=== PATIENT | female | born 1965 | race Caucasian/White ===

== ENCOUNTER 2018-04-23 21:28 | Emergency (ER) | payer MEDICARE ==
[2018-04-23 21:50] VITALS: BP 115/74
--- NOTE | 2018-04-23 22:22 | UC ---
Ear Complaint HPI - HPI Summary HPI Summary: 53 year old female presents with 1 week history of progressively worsening right ear pain. States began after she had been in a magnesium salt bath and may have gotten some water into the ear. Denies fever, chills, ear drainage, tinnitus, hearing loss, dizziness, vertigo, nasal congestion or drainage, sore throat, chest pain, shortness of breath, or cough. - History of Current Complaint Chief Complaint: UCEar Stated Complaint: EAR ACHE Time Seen by Provider: 04/23/18 22:00 Hx Obtained From: Patient Onset/Duration: Gradual Onset, Lasting Weeks - 1 Severity Initially: Mild Severity Currently: Moderate Pain Intensity: 8 Aggravating Factors: Nothing Alleviating Factors: Nothing Associated Signs/Symptoms: Negative: Discharge, Hearing Loss, URI Symptoms - Allergies/Home Medications Allergies/Adverse Reactions: Allergies Allergy/AdvReac Type Severity Reaction Status Date / Time Sulfa (Sulfonamide Allergy Severe Anaphylatic Verified 04/23/18 21:53 Antibiotics) Shock amoxicillin Allergy Intermediate Diarrhea Verified 04/23/18 21:53 erythromycin base Allergy Intermediate GI Upset Verified 04/23/18 21:53 fluoxetine Allergy Intermediate GI Upset Verified 04/23/18 21:53 progesterone Allergy Intermediate panic Verified 04/23/18 21:53 clavulanic acid Allergy Diarrhea Verified 04/23/18 21:53 STEROIDS AdvReac Severe "PUSH ME Uncoded 04/23/18 21:53 OVER THE EDGE" PMH/Surg Hx/FS Hx/Imm Hx - Additional Past Medical History Additional PMH: Fibromyalgia, environmental allergies Psychological History: Anxiety, Depression - Surgical History Surgical History: Yes Surgery Procedure, Year, and Place: 2004 hysterectomy- TOTAL HYSTERECTOMY, tonsillectomy & adenoidectomy, ear infections -tubes,mole removed left breast - Family History Known Family History: Positive: Hypertension, Diabetes, Other - anxiety, depression, Afib, aneurysm - Social History Occupation: Unemployed Lives: With Family Alcohol Use: None Substance Use Type: None Smoking Status (MU): Never Smoked Tobacco Review of Systems Constitutional: Negative Skin: Negative Eyes: Negative ENT: Ear Ache Respiratory: Negative Cardiovascular: Negative Is Patient Immunocompromised?: No All Other Systems Reviewed And Are Negative: Yes Physical Exam Triage Information Reviewed: Yes Appearance: Well-Appearing, No Pain Distress, Well-Nourished Vital Signs: Initial Vital Signs Temp 99.4 F 04/23/18 21:44 Pulse 82 04/23/18 21:44 Resp 20 04/23/18 21:44 BP 115/74 04/23/18 21:44 Pulse Ox 99 04/23/18 21:44 Vital Signs Reviewed: Yes Eyes: Positive: Conjunctiva Clear ENT: Positive: Pharynx normal, TMs normal, Uvula midline, Other - right external auditory canal eythematous with mild edema. No lesions or drainage noted.. Negative: Nasal congestion, Nasal drainage Neck: Positive: Supple, Nontender, No Lymphadenopathy Respiratory: Positive: Lungs clear, Normal breath sounds, No respiratory distress Cardiovascular: Positive: RRR, No Murmur Neurological: Positive: Alert Skin Exam: Normal Ear Complaint Course/Dx - Course Course Of Treatment: 53 year old female with 1 week of right ear pain after soaking in magnesium salt bath. Exam unremarkable except for some erythema and edema of the right exteral auditory canal consistent with a mild otits externa. Will prescribe 7 day course of Ciprodex and have her follow up with her PCP as already scheduled for recheck of ear. Patient verbalizes understanding and agrees with POC. - Differential Dx/Diagnosis Provider Diagnoses: right otitis externa Discharge - Sign-Out/Discharge Documenting (check all that apply): Patient Departure All imaging exams completed and their final reports reviewed: No Studies - Discharge Plan Condition: Stable Disposition: HOME Prescriptions: Ciproflox/Dexameth OTIC.SUSP* [Ciprodex OTIC.SUSP*] 4 drop .SEE ORDER BID 5 Days #1 btl Patient Education Materials: Otitis Externa (ED) Referrals: Edith Saldivar MD [Primary Care Provider] - () Additional Instructions: Your exam revealed a mild infection of the right ear canal. This is called swimmers ear. Start using Ciprodex otic 4 drops into the affected ear twice daily for 7 days. Take acetaminophen (Tylenol) according to directions as needed for pain. Do not place anything into the ear and avoid getting water into the ear. Follow-up with your primary care provider as scheduled on April 28, 2018 to have the ear rechecked. Seek immediate medical attention if you develop a fever greater than 100.5 F, have any blood or drainage from the ear, develop any dizziness or vertigo, lose hearing in the ear, or have any worsening of symptoms. - Billing Disposition and Condition Condition: STABLE Disposition: Home - Attestation Statements Provider Attestation: Per institutional requirements, I have reviewed the chart, however, I was not consulted specifically or made aware of this patient by the midlevel provider. I did not personally evaluate, interact with , or disposition this patient.
== END 2018-04-23 22:32 | disposition home or self-care (01) ==
LOC: UCEAST 21:28
DX: H60.91 Unspecified otitis externa, right ear (principal); Z88.0 Allergy status to penicillin; Z88.1 Allergy status to other antibiotic agents; Z88.8 Allergy status to other drugs, medicaments and biological substances
CPT/HCPCS: 99212; G0463

== ENCOUNTER 2018-05-25 17:58 | Emergency (ER) | payer MEDICARE ==
--- OUTSIDE RECORDS SUMMARY | 2018-05-25 18:04 | XMS REPORT ---
:1965 External Reference #:[id number] Author Organization [facility] Address [address] [place] [address] [place] [address] Phone [phone] Care Team Providers Name Role Phone Edith Saldivar MD Primary Care Physician Unavailable Payers Type Date Identification Numbers Payment Provider Subscriber Commercial Policy Number: [id number] [employer] pr Zarina Oneill PayID: [id number] [address] [address] Attn: [place] [address] Medigap Part B Expires: 2016 Policy Number: [id number] Medicare Zarinaluke Matthewsble PayID: [id number] [address] [place] [address] Medigap Part B Expires: 2012 Policy Number: [id number] Medicaid Zarina Nino Group Name: 1 1 [address] PayID: [id number] [place] [address] Commercial Effective: Policy Number: [employer] Zarinaluke Matthewsble 2012 [id number] Medicaid Expires: 2016 Group Name: [id number] [address] [address] PayID: [id number] [place] [address] Medigap Part B Effective: 2016 Policy Number: [id number] Medicaid Zarina Nino Expires: 2016 Group Name: 1 1 [address] PayID: [id number] [place] [address] Problems Date Description Provider Status Onset: 02/11/2012 Chronic pain syndrome Lupe Rodrigez M.D. Active Onset: 02/11/2012 Generalized anxiety disorder Lupe Rodrigez M.D. Active Onset: 05/07/2012 Impaired fasting glycaemia Lupe Rodrigez M.D. Active Onset: 08/30/2012 Rosacea Lupe Rodrigez M.D. Active Onset: 05/11/2013 Myalgia & Myositis Unspec Lupe Rodrigez M.D. Active Family History Date Family Member(s) Problem(s) Comments General Hypertension General Diabetes General Alzheimer's Disease Onset: (age 85 Years) Father Alzheimer's Disease lives at [facility] Mother Diabetes living at age 79 Mother Hypertension Mother Colitis First Brother Hypertension Social History Type Date Description Comments Lives With Mother has been living with her for last 20 plus years ETOH Use Denies alcohol use Smoking Patient has never smoked Recreational Drug Use Denies Drug Use Exercise Type/Frequency Exercises sporadically General Hx Text Engaged to be for several years, states is good relationship 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 b/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 and anxiety no formal exercise sexually active with fiance Allergies, Adverse Reactions, Alerts Date Description Reaction Status Severity Comments 02/03/2011 Bactrim active 02/03/2011 Erythromycin active 02/03/2011 Paxil active 02/03/2011 Prozac active 02/03/2011 Progesterone active 02/03/2011 Prednisone active 08/07/2016 Diflucan Urticaria active Moderate to Severe 11/21/2017 Noritate burning blistering rash active 10/19/2013 Augmentin severe diarrhea inactive Medications Medication Date Status Form Strength Qnty SIG Indications Ordering Provider Doxycycline 05/24 Hx Capsules 100mg 20cap one tablet J01.90 Gonzalo Hyclate /2017 s twice daily Nichole, [employer]DUCTOR/ENGINE[employer] - for 10 06/01 days. Ofloxacin 05/13 Active Solution 0.3% 5ml 10 drops Gonzalo (Otic) /2017 once daily Nichole [employer]DUCTOR/ENGINEER into affected ear for 7 days. Metrogel 12/11 Active Gel 1% 60uni apply twice L71.8 Gonzalo ts daily as Nichole [employer]DUCTOR/ENGINEER directed (please give in tube , not pump) Valacyclovir 10/12 Active Tablets 1gm 30tab 1 tablet Gonzalo HCL /2017 s once daily LEATHA Varela KP Vitamin D3 08/11 Active Capsules 2000Unit 30cap one tablet Gonzalo /2017 s daily Nichole [employer]DU[employer]/ENGINEER Fluticasone 10/08 Active Suspension 50mcg/Act 16uni 1 spray H93.93 Gonzalo Propionate /2015 ts each Nichole, CONDUCTOR/ENGINEER nostril daily as needed Zyrtec Allergy 02/20 Active Capsules 10mg 180ca 1 by mouth ps twice a day Nichole, CONDUCTOR/ENGINEER Xanax Active Tablets 0.25mg 20tab one by Unknown / s mouth up to four times daily as needed for anxiety Menostar Active Patches 14mcg/24H q6days Weekly R Vistaril Active Capsules 25mg 1-2 times daily as needed Advil Active Tablets 200mg as needed Magnesium Oxide Active Tablets 300mg 2 x per day by mouth every day Calcium Active Tablets 500-125mg -Unit Vitamin C Active Chewtabs 500mg 1 tab by mouth twice a day take with iron Meclizine HCL Active Tablets 12.5mg 90tab 1 by mouth Gonzalo s three times Nichole, CONDUCTOR/ENGINEER a day as needed Metronidazole 12/08 Hx Gel 0.75% 45gm apply twice L71.8 Gonzalo daily as Nichole, CONDUCTOR/ENGINEER - directed 12/31 Doxycycline 11/27 Hx Capsules 100mg 8caps one tablet J06.9 Gonzalo Hyclate twice daily Nichole, CONDUCTOR/ENGINEER - for 4 more 12/01 days. Metrogel 11/23 Hx Gel 1% 60uni apply twice L71.8 ts daily as Nichole, CONDUCTOR/ENGINEER - directed 12/08 ( give in tube , not pump) Noritate 10/30 Hx Cream 1% 60gm Apply twice L71.8 Gonzalo daily Nichole, CONDUCTOR/ENGINEER - 11/21 Doxycycline 07/17 Hx Capsules 100mg 20cap one tablet J06.9 Gonzalo Hyclate s twice daily Nichole, CONDUCTOR/ENGINEER - for 10 07/26 days. Doxycycline 05/28 Hx Capsules 100mg 20cap one tablet J01.90 Gonzalo Hyclate s twice daily Nichole, CONDUCTOR/ENGINEER - for 10 06/07 days. /2016 Vitamin D 03/03 Hx Capsules 1000Unit 30cap 1 by mouth Gonzalo (Cholecalcifero /2016 s once a day Nichole, CONDUCTOR/ENGINEER l) - 08/11 Vitamin D High 12/04 Hx Capsules 2000mg 60cap 1 by mouth Gonzalo Potency s every day Inchole, CONDUCTOR/ENGINEER - 03/03 Vitamin B-12 ER 12/04 Hx Tablets ER 500mcg 30tab 1 by mouth Gonzalo /2016 s every day Nichole, CONDUCTOR/ENGINEER - 05/28 Metoclopramide 12/04 Hx Tablets 5mg 14tab one tablet R10.9 Gonzalo HCL /2016 s every 8 Nichole, CONDUCTOR/ENGINEER - hours as 05/28 needed. Doxycycline 10/16 Hx Capsules 100mg 20cap one tablet J01.90 Gonzalo Hyclate /2016 s twice daily Nichole, CONDUCTOR/ENGINEER - for 10 10/24 days. Vitamin D2 08/06 Hx Tablets 2000Unit 90tab 1 by mouth Gonzalo /2016 s every day Nichole, CONDUCTOR/ENGINEER - 11/20 Meloxicam 04/24 Hx Tablets 7.5mg 30tab take one s tab twice Edgardo, - daily as M.D. 08/12 needed for pain, avoid other nsaids Ergocalciferol 04/01 Hx Capsules [id number] 12cap 1 tab by Gonzalo s mouth every Nichole, CONDUCTOR/ENGINEER - week 08/06 Metronidazole 10/17 Hx Gel 0.75% 45gm apply 1 L71.8 Edith /2016 application Cotton, - topically M.D. 10/17 to affected area twice daily Metrogel 10/17 Hx Gel 1% 60uni apply twice L71.8 ts daily as Nichole, CONDUCTOR/ENGINEER - directed 10/30 (please give in tube , not pump) Nasacort 09/26 Hx Aerosol 55mcg/Act 10.80 use 2 J06.9 Gonzalo Allergy 24HR 0ml sprays each Nichole, CONDUCTOR/ENGINEER - nostril 09/27 twice daily. Nasonex Hx Suspension 50mcg/Act 17gm two sprays J06.9 Gonzalo each Nichole, CONDUCTOR/ENGINEER - nostril 09/26 once daily 2016 for 2 weeks. Amoxicillin 05/14 Hx Tablets 500mg 14tab 1 tab by J06.9 s mouth twice Mcpherson, CONDUCTOR/ENGINEER - a day times 7 Valacyclovir 03/21 Hx Tablets 500mg 18tab 1 by mouth Gonzalo HCL s twice daily Nichole [employer]DUCTOR/ENGINEER - for 3 days 10/12 as needed Zovirax 02/06 Hx Cream 5% 5gm Apply thin film 5 Cotton, - times daily M.D. 05/28 as needed for rash Valacyclovir 12/25 Hx Tablets 1gm 21tab 1 by mouth Edith s three times Cotton, - a day for 7 M.D. Buspirone HCL 04/13 Hx Tablets 15mg 60tab take one s tablet by Cotton, - mouth twice M.D. 04/13 a Vistaril 04/13 Hx Capsules 25mg 30cap 1 to 2 tabs s by mouth at Cotton, - bedtime as M.D. 02/20 Gabapentin 04/13 Hx Capsules 100mg 60cap take 1 PO 719.45 s twice daily Cotton, - as needed M.D. 08/21 for nerve pain Lidoderm 02/21 Hx Patches 5% 90uni 1-2 patches ts daily on Cotton, - for 12 M.D. 08/11 hours and then off for 12 hours as needed Metrogel 11/29 Hx Gel 1% 55gm apply 1 695.3 application Cotton, - topically M.D. 10/17 to area twice daily Valacyclovir 10/31 Hx Tablets 500mg 30tab 1 by mouth 054.79 Edith HCL s daily Cotton, - M.D. 08/28 Valacyclovir 10/30 Hx Tablets 1gm 21tab 1 po tid 054.79 Patti HCL s for 7 days Benigno, - M.D. 10/31 Aleve 10/20 Hx Capsules 220mg 60cap 1 by mouth s twice a day Varn, N.P. - as needed 10/04 Lyrica 10/07 Hx Capsules 25mg 60cap 1 po qday s Varn, N.P. - 10/20 Amoxicillin/Cla 10/07 Hx Tablets 875-125mg 20tab one tablet 461.9 Amelia s by mouth Varn, N.P. Potassium - twice daily 10/17 for 10 days Valacyclovir 07/15 Hx Tablets 1gm 21tab 1 po tid 054.79 Lupe HCL s for 7 days Manas Rodrigez M.DJimmy 10/07 Fluticasone 05/11 Hx Suspension 50mcg/Act 16gm 1 spray V41.3 Lupe Propionate each Manas Rodrigez nostril M.D. 04/13 daily needed Vitamin D-3 11/08 Hx Tablets 400Unit 90tab 1 po qd s Manas Rodrigez.DJimmy 10/07 Cod Liver Oil 11/08 Hx Capsules Manas Rodrigez.DJimmy 04/13 Metronidazole 10/06 Hx Gel 1% 45gm apply twice 695.3 daily Manas Rodrigez M.DJimmy 11/29 Cefuroxime 10/04 Hx Tablets 250mg 20tab 1 tablet by Lupe Axetil s mouth twice Rain, - daily for M.D. 11/08 Metronidazole 09/06 Hx Gel 0.75% 45gm Apply 1 695.3 application Rain, - topically M.D. 11/08 to area 2 times per day Metronidazole 09/03 Hx Gel 1% 45gm apply twice 695.3 daily Manas Rodrigez M.DJimmy 09/06 Levaquin 03/05 Hx Tablets 500mg 10tab 1 po daily 680.9 Amelia /2012 s for 10 days Varn, N.P. - 03/05 Augmentin 03/05 Hx Tablets 875-125mg 20tab one by Amelia /2012 s mouth every Varn, N.P. - 12 hours 03/15 for days Doxycycline 02/10 Hx Capsules 100mg 28cap one tablet 682.6 Lupe Hyclate s twice daily Rain, - until gone M.D. 03/10 Cataflam 02/03 Hx Judie Francis - 02/03 Gabapentin 02/03 Hx Capsules 100mg 30cap 1 qhs tati Francis M.D. - 02/10 Meloxicam 02/03 Hx Tablets 7.5mg 30tab 1 po qd Eder tati Francis M.D. - 02/10 Nortriptyline Hx Capsules 10mg 60cap take 1 Unknown HCL /0000 s capsule - orally 08/30 twice a day Climara / Hx Patches 0.0375mg/ 1 Unknown /0000 Weekly 24HR transdermal - ly qweek 03/24 Metrogel Hx Gel 1% 60gm apply twice 695.3 Lupe /0000 daily Manas Rodrigez M.D. 09/03 Zyrtec Allergy Hx Capsules 10mg 30cap 1 po qd prn Lupe /0000 s Manas Rodrigez M.D. 08/28 Benadryl Hx Capsules 25mg 60cap 2- 4 tabs Unknown Allergy /0000 s for - allergies 02/20 Valacyclovir /00 Hx Tablets 1gm 21tab 1 po tid Unknown HCL /0000 s for 7 days - 08/30 Nasonex Hx Suspension 50mcg/Act 1unit 2 sprays to Unknown /0000 s each - nostril 08/30 twice daily /2012 Xopenex HFA Hx Aerosol 45mcg/Act 1unit 2 puffs qid Unknown /0000 s prn - 11/08 Valacyclovir 00/00 Hx Tablets 1gm 21tab 1 po tid 054.79 Lupe HCL /0000 s for 7 days Manas Rodrigez M.D. 04/08 Nortriptyline 00/ Hx Capsules 10mg 30cap 1 po every Unknown HCL /0000 s day - 11/09 Estradiol 00/00 Hx Tablets 0.25mg 30tab 1 po qd Unknown /0000 s - 05/11 Nortriptyline /00 Hx Capsules 10mg 90cap 1 tab by Unknown HCL /0000 s mouth every - night as 08/28 Tramadol HCL 00/00 Hx Tablets 50mg 1-2 tablets Unknown /0000 every 6 - hours as 11/01 Metaxalone 00 Hx Tablets 800mg as needed Unknown /0000 - 12/04 Advil Declan Hx Chewtabs 100mg Unknown Strength /0000 - 10/04 Metaxalone Hx Tablets 400mg 1/2 tablet Unknown /0000 daily as - needed 12/04 Tami Moon Hx Pellet 4 tabs Unknown /0000 sublingual - bid 05/28 Vitamin B 6 Hx Tablets 25mg 1/2 tab qd Unknown /0000 - 07/17 Doxycycline Hx Capsules 100mg Jesica Damon /0000 MD Jonah - 08/11 Immunizations CPT Code Status Date Vaccine Lot # [id number] Given 03/21/2016 Flu Vaccine NOS [id number] Given 08/28/2014 Tdap - Tetanus/Diptheria/Acellular Pertussis 9924l Vital Signs Date Vital Result Comment 05/24/2018 Height 67.5 inches 5'7.50" Weight 162.00 lb Heart Rate 69 /min BP Systolic 113 mmHg BP Diastolic 71 mmHg Body Temperature 98.1 F O2 % BldC Oximetry 99 % BMI (Body Mass Index) 25.0 kg/m2 05/07/2018 Height 67.5 inches 5'7.50" Weight 167.00 lb Heart Rate 75 /min BP Systolic 117 mmHg BP Diastolic 73 mmHg Body Temperature 98.0 F O2 % BldC Oximetry 98 % BMI (Body Mass Index) 25.8 kg/m2 12/31/2017 Weight 169.50 lb Heart Rate 86 /min BP Systolic 100 mmHg BP Diastolic 62 mmHg Body Temperature 97.5 F O2 % BldC Oximetry 100 % 11/25/2017 Weight 163.25 lb Heart Rate 81 /min BP Systolic 116 mmHg BP Diastolic 72 mmHg Body Temperature 98.1 F O2 % BldC Oximetry 97 % 10/28/2017 Weight 162.50 lb Heart Rate 82 /min BP Systolic 112 mmHg BP Diastolic 70 mmHg Body Temperature 98.7 F O2 % BldC Oximetry 98 % 07/17/2017 Weight 159.00 lb Heart Rate 83 /min BP Systolic 110 mmHg BP Diastolic 66 mmHg Body Temperature 97.7 F O2 % BldC Oximetry 98 % 05/28/2017 Weight 163.50 lb Heart Rate 84 /min BP Systolic Sitting 104 mmHg BP Diastolic Sitting 72 mmHg Body Temperature 99.1 F O2 % BldC Oximetry 98 % 03/16/2017 Heart Rate 72 /min BP Systolic 120 mmHg BP Diastolic 80 mmHg Respiratory Rate 16 /min Body Temperature 96.3 F 12/12/2016 Heart Rate 72 /min BP Systolic 102 mmHg BP Diastolic 64 mmHg Respiratory Rate 16 /min Body Temperature 97.9 F 12/05/2016 Height 67.25 inches 5'7.25" Weight 160.00 lb Heart Rate 72 /min BP Systolic 120 mmHg BP Diastolic 78 mmHg Respiratory Rate 16 /min Body Temperature 98.5 F BMI (Body Mass Index) 24.9 kg/m2 12/04/2016 Weight 161.50 lb Heart Rate 94 /min BP Systolic 120 mmHg BP Diastolic 66 mmHg Body Temperature 100.1 F O2 % BldC Oximetry 99 % 10/16/2016 Weight 161.00 lb with shoes 08/12/2016 Height 67.25 inches 5'7.25" Weight 160.00 lb Heart Rate 98 /min BP Systolic Sitting 120 mmHg BP Diastolic Sitting 76 mmHg Body Temperature 97.9 F Pain Level 10 BMI (Body Mass Index) 24.9 kg/m2 08/11/2016 Height 67.25 inches 5'7.25" Weight 162.00 lb Heart Rate 79 /min BP Systolic 110 mmHg BP Diastolic 72 mmHg Body Temperature 98.1 F O2 % BldC Oximetry 99 % BMI (Body Mass Index) 25.2 kg/m2 05/12/2016 Height 67.25 inches 5'7.25" Weight 170.25 lb Heart Rate 72 /min BP Systolic Sitting 100 mmHg BP Diastolic Sitting 70 mmHg Respiratory Rate 14 /min Body Temperature 97.6 F Pain Level 8 BMI (Body Mass Index) 26.5 kg/m2 04/24/2016 Height 67.25 inches 5'7.25" Weight 173.00 lb Heart Rate 80 /min BP Systolic Sitting 120 mmHg BP Diastolic Sitting 70 mmHg Respiratory Rate 14 /min Body Temperature 97.9 F Pain Level 10 BMI (Body Mass Index) 26.9 kg/m2 03/27/2016 Weight 178.00 lb with shoes Heart Rate 80 /min BP Systolic Sitting 104 mmHg BP Diastolic Sitting 80 mmHg Body Temperature 97.3 F O2 % BldC Oximetry 98 % 11/02/2015 Weight 175.75 lb Heart Rate 84 /min BP Systolic Sitting 108 mmHg BP Diastolic Sitting 69 mmHg Body Temperature 97.0 F O2 % BldC Oximetry 97 % 10/05/2015 Weight 175.00 lb Heart Rate 98 /min BP Systolic Sitting 118 mmHg BP Diastolic Sitting 74 mmHg Body Temperature 99.5 F O2 % BldC Oximetry 98 % 09/24/2015 Weight 176.00 lb Heart Rate 89 /min BP Systolic Sitting 115 mmHg BP Diastolic Sitting 77 mmHg Body Temperature 98.8 F Pain Level 10 O2 % BldC Oximetry 96 % 05/14/2015 Weight 176.00 lb Heart Rate 98 /min BP Systolic Sitting 120 mmHg BP Diastolic Sitting 77 mmHg Body Temperature 98.7 F 02/20/2015 Weight 171.00 lb Heart Rate 87 /min BP Systolic Sitting 118 mmHg BP Diastolic Sitting 76 mmHg Body Temperature 97.6 F 11/27/2014 Weight 172.00 lb Heart Rate 83 /min BP Systolic Sitting 115 mmHg BP Diastolic Sitting 78 mmHg 09/08/2014 Weight 176.00 lb Heart Rate 96 /min BP Systolic Sitting 130 mmHg BP Diastolic Sitting 80 mmHg Body Temperature 98.4 F 08/28/2014 Height 67.5 inches 5'7.50" Weight 179.00 lb Heart Rate 102 /min BP Systolic Sitting 116 mmHg BP Diastolic Sitting 68 mmHg Body Temperature 98.2 F BMI (Body Mass Index) 27.6 kg/m2 04/13/2014 Weight 174.50 lb Heart Rate 87 /min BP Systolic Sitting 110 mmHg BP Diastolic Sitting 70 mmHg Body Temperature 98.6 F O2 % BldC Oximetry 97 % 02/16/2014 Weight 172.00 lb Heart Rate 72 /min BP Systolic Sitting 118 mmHg BP Diastolic Sitting 62 mmHg Body Temperature 98.5 F 01/16/2014 Height 67.5 inches 5'7.50" Weight 173.00 lb Heart Rate 80 /min BP Systolic Sitting 122 mmHg BP Diastolic Sitting 80 mmHg Body Temperature 99.2 F BMI (Body Mass Index) 26.7 kg/m2 11/29/2013 Height 67.5 inches 5'7.50" Weight 174.00 lb Heart Rate 86 /min BP Systolic Sitting 98 mmHg BP Diastolic Sitting 64 mmHg Body Temperature 99.0 F BMI (Body Mass Index) 26.8 kg/m2 11/09/2013 Weight 175.50 lb Heart Rate 84 /min BP Systolic Sitting 122 mmHg BP Diastolic Sitting 86 mmHg Respiratory Rate 18 /min Body Temperature 98.4 F O2 % BldC Oximetry 98 % 10/20/2013 Weight 173.50 lb Heart Rate 76 /min BP Systolic 108 mmHg BP Diastolic 74 mmHg Respiratory Rate 16 /min Body Temperature 96.2 F 10/07/2013 Weight 172.50 lb Heart Rate 84 /min BP Systolic 120 mmHg BP Diastolic 78 mmHg Respiratory Rate 18 /min Body Temperature 96.5 F 07/06/2013 Weight 166.00 lb Heart Rate 88 /min BP Systolic Sitting 122 mmHg BP Diastolic Sitting 80 mmHg 05/11/2013 Height 67.25 inches 5'7.25" Weight 166.75 lb Heart Rate 100 /min BP Systolic 110 mmHg BP Diastolic 72 mmHg BMI (Body Mass Index) 25.9 kg/m2 04/08/2013 Weight 170.00 lb Heart Rate 82 /min BP Systolic Sitting 126 mmHg BP Diastolic Sitting 84 mmHg 02/23/2013 Weight 168.75 lb Heart Rate 80 /min BP Systolic Sitting 120 mmHg BP Diastolic Sitting 70 mmHg 11/17/2012 Weight 167.75 lb Heart Rate 68 /min BP Systolic Sitting 108 mmHg BP Diastolic Sitting 70 mmHg 11/08/2012 Height 67 inches 5'7" Weight 169.00 lb Heart Rate 82 /min BP Systolic Sitting 122 mmHg BP Diastolic Sitting 70 mmHg BMI (Body Mass Index) 26.5 kg/m2 10/04/2012 Height 67 inches 5'7" Weight 170.00 lb Heart Rate 80 /min BP Systolic Sitting 120 mmHg BP Diastolic Sitting 66 mmHg BMI (Body Mass Index) 26.6 kg/m2 08/30/2012 Height 67 inches 5'7" Weight 169.75 lb Heart Rate 92 /min BP Systolic Sitting 110 mmHg BP Diastolic Sitting 80 mmHg BMI (Body Mass Index) 26.6 kg/m2 05/07/2012 Height 67 inches 5'7" Weight 171.00 lb Heart Rate 80 /min BP Systolic Sitting 128 mmHg BP Diastolic Sitting 74 mmHg BMI (Body Mass Index) 26.8 kg/m2 03/24/2012 Height 67 inches 5'7" Weight 171.00 lb Heart Rate 78 /min BP Systolic Sitting 122 mmHg BP Diastolic Sitting 74 mmHg BMI (Body Mass Index) 26.8 kg/m2 03/10/2012 Height 67 inches 5'7" Weight 169.00 lb Heart Rate 80 /min BP Systolic Sitting 130 mmHg BP Diastolic Sitting 84 mmHg BMI (Body Mass Index) 26.5 kg/m2 03/05/2012 Height 67 inches 5'7" Weight 170.00 lb Heart Rate 80 /min BP Systolic Sitting 122 mmHg BP Diastolic Sitting 74 mmHg BMI (Body Mass Index) 26.6 kg/m2 02/11/2012 Height 67 inches 5'7" Weight 170.00 lb Heart Rate 78 /min BP Systolic Sitting 134 mmHg BP Diastolic Sitting 80 mmHg BMI (Body Mass Index) 26.6 kg/m2 04/10/2011 Height 67 inches 5'7" Weight 170.00 lb Heart Rate 78 /min BP Systolic 140 mmHg BP Diastolic 90 mmHg BMI (Body Mass Index) 26.6 kg/m2 02/03/2011 Height 67 inches 5'7" Weight 169.00 lb Heart Rate 80 /min BP Systolic 130 mmHg BP Diastolic 80 mmHg BMI (Body Mass Index) 26.5 kg/m2 Results Test Date Test Result H/L Range Note CBC Auto Diff 12/31/2017 White Blood Count 5.2 10^3/uL 3.5-10.8 Red Blood Count 4.22 10^6/uL 4.0-5.4 Hemoglobin 14.1 g/dL 12.0-16.0 Hematocrit 40 % 35-47 Mean Corpuscular Volume 95 fL 80-97 Mean Corpuscular Hemoglobin 33 pg High 27-31 Mean Corpuscular HGB Conc 35 g/dL 31-36 Red Cell Distribution Width 14 % 10.5-15 Platelet Count 170 10^3/uL 150-450 Mean Platelet Volume 8.2 um3 7.4-10.4 Abs Neutrophils 3.7 10^3/uL 1.5-7.7 Abs Lymphocytes 1.2 10^3/uL 1.0-4.8 Abs Monocytes 0.3 10^3/uL 0-0.8 Abs Eosinophils 0 10^3/uL 0-0.6 Abs Basophils 0 10^3/uL 0-0.2 Abs Nucleated RBC 0 10^3/uL Granulocyte % 70.7 % 38-83 Lymphocyte % 22.3 % Low 25-47 Monocyte % 6.0 % 0-7 Eosinophil % 0.5 % 0-6 Basophil % 0.5 % 0-2 Nucleated Red Blood Cells % 0.1 Comp Metabolic Panel 12/31/2017 Sodium 141 mmol/L 139-145 Potassium 3.9 mmol/L 3.5-5.0 Chloride 105 mmol/L 101-111 Co2 Carbon Dioxide 28 mmol/L 22-32 Anion Gap 8 mmol/L 2-11 Glucose 112 mg/dL High 70-100 Blood Urea Nitrogen 18 mg/dL 6-24 Creatinine 0.85 mg/dL 0.51-0.95 BUN/Creatinine Ratio 21.2 High 8-20 Calcium 9.1 mg/dL 8.6-10.3 Total Protein 6.6 g/dL 6.4-8.9 Albumin 4.2 g/dL 3.2-5.2 Globulin 2.4 g/dL 2-4 Albumin/Globulin Ratio 1.8 1-3 Total Bilirubin 0.40 mg/dL 0.2-1.0 Alkaline Phosphatase 57 U/L 34-104 Alt 20 U/L 7-52 Ast 19 U/L 13-39 Egfr Non- 70.5 >60 Egfr 90.7 >60 1 Laboratory test finding 12/31/2017 Vitamin B12 642 pg/mL 180-914 2 Vitamin D Total 25(Oh) 27.7 ng/mL 20-50 TSH (Thyroid Stim Horm) 1.76 mcIU/mL 0.34-5.60 Urine Culture And Sensitivities 12/05/2016 Urine Culture SEE RESULT BELOW 3 Laboratory test finding 12/05/2016 Amylase 40 U/L 29-103 Lipase 29 U/L 11.0-82.0 Laboratory test finding 12/05/2016 Surgical Pathology SEE RESULT BELOW 4 CBC Auto Diff 12/05/2016 White Blood Count 7.6 10^3/uL 3.5-10.8 Red Blood Count 4.41 10^6/uL 4.0-5.4 Hemoglobin 13.5 g/dL 12.0-16.0 Hematocrit 40 % 35-47 Mean Corpuscular Volume 91 fL 80-97 Mean Corpuscular Hemoglobin 31 pg 27-31 Mean Corpuscular HGB Conc 34 g/dL 31-36 Red Cell Distribution Width 12 % 10.5-15 Platelet Count 154 10^3/uL 150-450 Mean Platelet Volume 9 um3 7.4-10.4 Abs Neutrophils 5.8 10^3/uL 1.5-7.7 Abs Lymphocytes 1.3 10^3/uL 1.0-4.8 Abs Monocytes 0.5 10^3/uL 0-0.8 Abs Eosinophils 0 10^3/uL 0-0.6 Abs Basophils 0 10^3/uL 0-0.2 Abs Nucleated RBC 0 10^3/uL Granulocyte % 76.0 % 38-83 Lymphocyte % 16.5 % Low 25-47 Monocyte % 6.6 % 1-9 Eosinophil % 0.4 % 0-6 Basophil % 0.5 % 0-2 Nucleated Red Blood Cells % 0 Comp Metabolic Panel 12/05/2016 Sodium 140 mmol/L 133-145 Potassium 3.8 mmol/L 3.5-5.0 Chloride 104 mmol/L 101-111 Co2 Carbon Dioxide 29 mmol/L 22-32 Anion Gap 7 mmol/L 2-11 Glucose 100 mg/dL 70-100 Blood Urea Nitrogen 15 mg/dL 6-24 Creatinine 0.93 mg/dL 0.51-0.95 BUN/Creatinine Ratio 16.1 8-20 Calcium 8.6 mg/dL 8.6-10.3 Total Protein 6.2 g/dL Low 6.4-8.9 Albumin 3.7 g/dL 3.2-5.2 Globulin 2.5 g/dL 2-4 Albumin/Globulin Ratio 1.5 1-3 Total Bilirubin 0.90 mg/dL 0.2-1.0 Alkaline Phosphatase 63 U/L 34-104 Alt 13 U/L 7-52 Ast 14 U/L 13-39 Egfr Non- 63.8 >60 Egfr 82.1 >60 5 Ua Routine 12/04/2016 Ua Specific [place] 1.010 Ua PH 6 Ua Color yellow Ua Appera clear Ua WBC tr Ua Protein neg Ua Glucose neg Ua Ketones norm Ua Bilirubin norm Ua Urobilinogen norm Ua Nitrite neg Ua Occult Blood neg Ua Routine 08/11/2016 Ua Specific [place] 1.005 Ua PH 7.5 Ua Color yellow Ua Appera clear Ua WBC -- Ua Protein -- Ua Glucose -- Ua Ketones moderate Ua Bilirubin -- Ua Urobilinogen normal Ua Nitrite -- Ua Occult Blood -- Urine Culture And 08/11/2016 Urine Culture SEE RESULT BELOW 6 Sensitivities Laboratory test finding 07/25/2016 Vitamin D Total 28.0 ng/mL Low 30-50 7 25(Oh) Vitamin B12 415 pg/mL 180-914 8 Laboratory test finding 04/24/2016 Anti Nuclear Antibody 0.4 U 9 Anca AB Ser If 04/24/2016 C-Anca Negative Negative P-Anca Negative Negative 10 Laboratory test finding 04/24/2016 Angiotensin Converting 38 U/L 8 - 53 11 Enzyme Anti-Thyroid Antibodies 04/24/2016 Thyroperoxidase AB 0.25 IU/mL <9 Screen Thyroglobulin AB <1.8 IU/mL <4.0 12 Laboratory test finding 04/24/2016 Creatine Kinase(CK) 97 U/L 10-223 C Reactive Protein 5.96 mg/L High < 5.00 13 Cyclic Citrullinated Pep Igg <15.6 U 14 Rheumatoid Factor <15 IU/mL <15 15 Ferritin 107.7 ng/mL 11-307 T3 Total 0.85 ng/mL Low 0.87-1.78 Celiac Panel 04/24/2016 Tissue Transglutaminase IgA Ab <1.2 U/mL 16 Immunoglobulin A 227 mg/dL 61 - 356 Celiac Interpretation See Comment 17 Celiac Hla DQ1/DQ2 04/24/2016 Hla-Dqa1 SEE BELOW 18 Hla-DQB1 SEE BELOW 19 Celiac Gene Pairs Present? Yes Celiac Gene Interpretation See Comment 20 Hla B27 04/24/2016 Hla B27 Negative 21 Hla B27 Interp See Comment 22 Laboratory test finding 04/24/2016 Uric Acid 5.0 mg/dL 2.3-6.6 Laboratory test finding 03/29/2016 Vitamin D Total 25(Oh) 18.2 ng/mL Low 30-50 Vitamin B12 293 pg/mL 180-914 23 Erythrocyte Sed Rate 26 mm/Hr High 0-14 C Reactive Protein 6.09 mg/L High < 5.00 24 TSH (Thyroid Stim Horm) 1.93 mcIU/mL 0.34-5.60 CBC Auto Diff 10/06/2015 White Blood Count 3.9 10^3/uL 3.5-10.8 Red Blood Count 4.57 10^6/uL 4.0-5.4 Hemoglobin 14.0 g/dL 12.0-16.0 Hematocrit 41 % 35-47 Mean Corpuscular Volume 90 fL 80-97 Mean Corpuscular Hemoglobin 31 pg 27-31 Mean Corpuscular HGB Conc 34 g/dL 31-36 Red Cell Distribution Width 12 % 10.5-15 Platelet Count 146 10^3/uL Low 150-450 Mean Platelet Volume 7 um3 Low 7.4-10.4 Abs Neutrophils 2.8 10^3/uL 1.5-7.7 Abs Lymphocytes 0.8 10^3/uL Low 1.0-4.8 Abs Monocytes 0.4 10^3/uL 0-0.8 Abs Eosinophils 0 10^3/uL 0-0.6 Abs Basophils 0 10^3/uL 0-0.2 Abs Nucleated RBC 0 10^3/uL Granulocyte % 70.6 % 38-83 Lymphocyte % 19.7 % Low 25-47 Monocyte % 8.9 % 1-9 Eosinophil % 0.1 % 0-6 Basophil % 0.7 % 0-2 Nucleated Red Blood Cells % 0.1 Comp Metabolic Panel 10/06/2015 Sodium 135 mmol/L 133-145 Potassium 4.0 mmol/L 3.5-5.0 Chloride 101 mmol/L 101-111 Co2 Carbon Dioxide 29 mmol/L 22-32 Anion Gap 5 mmol/L 2-11 Glucose 92 mg/dL 70-100 Blood Urea Nitrogen 11 mg/dL 6-24 Creatinine 0.97 mg/dL High 0.51-0.95 BUN/Creatinine Ratio 11.3 8-20 Calcium 8.7 mg/dL 8.6-10.3 Total Protein 7.3 g/dL 6.4-8.9 Albumin 4.3 g/dL 3.2-5.2 Globulin 3.0 g/dL 2-4 Albumin/Globulin Ratio 1.4 1-3 Total Bilirubin 0.50 mg/dL 0.2-1.0 Alkaline Phosphatase 64 U/L 34-104 Alt 34 U/L 7-52 Ast 31 U/L 13-39 Egfr Non- 61.0 >60 Egfr 78.5 >60 25 Laboratory test finding 10/06/2015 C Reactive Protein 17.40 mg/L High < 5.00 26 Erythrocyte Sed Rate 32 mm/Hr High 0-14 Ua Routine 10/05/2015 Ua Specific [place] 1.005 Ua PH yellow Ua Color grady Ua Appera neg Ua WBC neg Ua Protein neg Ua Glucose neg Ua Ketones neg Ua Bilirubin neg Ua Urobilinogen neg Ua Nitrite neg Ua Occult Blood neg CBC Auto Diff 09/24/2015 White Blood Count 5.5 10^3/uL 3.5-10.8 Red Blood Count 4.72 10^6/uL 4.0-5.4 Hemoglobin 14.9 g/dL 12.0-16.0 Hematocrit 43 % 35-47 Mean Corpuscular Volume 90 fL 80-97 Mean Corpuscular Hemoglobin 32 pg High 27-31 Mean Corpuscular HGB Conc 35 g/dL 31-36 Red Cell Distribution Width 12 % 10.5-15 Platelet Count 154 10^3/uL 150-450 Mean Platelet Volume 8 um3 7.4-10.4 Abs Neutrophils 4.0 10^3/uL 1.5-7.7 Abs Lymphocytes 1.0 10^3/uL 1.0-4.8 Abs Monocytes 0.4 10^3/uL 0-0.8 Abs Eosinophils 0 10^3/uL 0-0.6 Abs Basophils 0 10^3/uL 0-0.2 Abs Nucleated RBC 0.05 10^3/uL Granulocyte % 72.3 % 38-83 Lymphocyte % 18.1 % Low 25-47 Monocyte % 8.2 % 1-9 Eosinophil % 0.9 % 0-6 Basophil % 0.5 % 0-2 Nucleated Red Blood Cells % 0.9 Laboratory test finding 09/24/2015 Creatine Kinase(CK) 61 U/L 10-223 Comp Metabolic Panel 09/24/2015 Sodium 140 mmol/L 133-145 Potassium 4.2 mmol/L 3.5-5.0 Chloride 101 mmol/L 101-111 Co2 Carbon Dioxide 32 mmol/L 22-32 Anion Gap 7 mmol/L 2-11 Glucose 66 mg/dL Low 70-100 Blood Urea Nitrogen 15 mg/dL 6-24 Creatinine 0.98 mg/dL High 0.51-0.95 BUN/Creatinine Ratio 15.3 8-20 Calcium 9.4 mg/dL 8.6-10.3 Total Protein 7.0 g/dL 6.4-8.9 Albumin 4.5 g/dL 3.2-5.2 Globulin 2.5 g/dL 2-4 Albumin/Globulin Ratio 1.8 1-3 Total Bilirubin 0.60 mg/dL 0.2-1.0 Alkaline Phosphatase 72 U/L 34-104 Alt 23 U/L 7-52 Ast 27 U/L 13-39 Egfr Non- 60.3 >60 Egfr 77.6 >60 27 Laboratory test finding 09/24/2015 C Reactive Protein 53.25 mg/L High < 5.00 28 Cyclic Citrullinated Pep Igg <15.6 U 29 Erythrocyte Sed Rate 24 mm/Hr High 0-14 Lyme Disease Serology Negative Negative 30 Rheumatoid Factor <15 IU/mL <15 31 Merissa (Antinuclear Antibodies) Negative Negative Lipid Profile (Trig/Chol/HDL) 02/20/2015 Triglycerides 378 mg/dL 32, 33 Cholesterol 206 mg/dL 32, 34 HDL Cholesterol 39.4 mg/dL 32, 35 LDL Cholesterol 91 mg/dL 32, 36 Lipid Profile (Trig/Chol/HDL) 11/23/2014 Triglycerides 394 mg/dL 37, 38 Cholesterol 204 mg/dL 37, 39 HDL Cholesterol 32.1 mg/dL 37, 40 LDL Cholesterol 93 mg/dL 37, 41 CBC No Diff 11/23/2014 White Blood Count 4.2 10^3/uL Low 4.8-10.8 Red Blood Count 4.64 10^6/uL 4.0-5.4 Hemoglobin 14.4 g/dL 12.0-16.0 Hematocrit 42 % 35-47 Mean Corpuscular Volume 91 fL 80-97 Mean Corpuscular Hemoglobin 31 pg 27-31 Mean Corpuscular HGB Conc 34 g/dL 31-36 Red Cell Distribution Width 13 % 10.5-15 Platelet Count 176 10^3/uL 150-450 Mean Platelet Volume 8 um3 7.4-10.4 Comp Metabolic Panel 11/23/2014 Sodium 138 mmol/L 133-145 Potassium 4.2 mmol/L 3.5-5.0 Chloride 104 mmol/L 101-111 Co2 Carbon Dioxide 30 mmol/L 22-32 Anion Gap 4 mmol/L 2-11 Glucose 95 mg/dL 70-100 Blood Urea Nitrogen 16 mg/dL 6-24 Creatinine 0.94 mg/dL 0.51-0.95 BUN/Creatinine Ratio 17.0 8-20 Calcium 9.0 mg/dL 8.6-10.3 Total Protein 6.6 g/dL 6.4-8.9 Albumin 4.3 g/dL 3.2-5.2 Globulin 2.3 g/dL 2-4 Albumin/Globulin Ratio 1.9 1-3 Total Bilirubin 0.60 mg/dL 0.2-1.0 Alkaline Phosphatase 62 U/L 34-104 Alt 18 U/L 7-52 Ast 18 U/L 13-39 Egfr Non- 63.6 >60 Egfr 81.7 >60 42 Laboratory test finding 11/23/2014 Erythrocyte Sed Rate 25 mm/Hr High 0- 14 Lipid Profile 08/29/2014 Triglycerides 530 mg/dL 37, 43 (Trig/Chol/HDL) Cholesterol 221 mg/dL 37, 44 HDL Cholesterol 34.6 mg/dL 37, 45 LDL Cholesterol (SEE NOTE) mg/dL 37, 46 Comp Metabolic Panel 08/29/2014 Sodium 138 mmol/L 133-145 37 Potassium 4.3 mmol/L 3.5-5.0 37 Chloride 102 mmol/L 101-111 37 Co2 Carbon Dioxide 29 mmol/L 22-32 37 Anion Gap 7 mmol/L 2-11 37 Glucose 97 mg/dL 70-100 37 Blood Urea Nitrogen 14 mg/dL 6-24 37 Creatinine 0.90 mg/dL 0.51-0.95 37 BUN/Creatinine Ratio 15.6 8-20 37 Calcium 9.5 mg/dL 8.6-10.3 37 Total Protein 6.8 g/dL 6.4-8.9 37 Albumin 4.3 g/dL 3.2-5.2 37 Globulin 2.5 g/dL 2-4 37 Albumin/Globulin Ratio 1.7 1-3 37 Total Bilirubin 0.70 mg/dL 0.2-1.0 37 Alkaline Phosphatase 73 U/L 34-104 37 Alt 16 U/L 7-52 37 Ast 18 U/L 13-39 37 Egfr Non- 66.8 >60 37 Egfr 85.9 >60 37, 47 Laboratory test finding 08/29/2014 Hemoglobin A1c 5.6 % Less than 6.0 37 , 48 TSH (Thyroid Stimulating Horm) 2.28 IU/mL 0.34-5.60 37, 49 LDL Cholesterol Direct 83 mg/dL 37, 50 Ua Routine 08/28/2014 Ua Specific [place] 1.005 Ua PH 7 Ua Color yellow Ua Appera clear Ua WBC neg Ua Protein neg Ua Glucose neg Ua Ketones neg Ua Bilirubin neg Ua Urobilinogen 0.2 Ua Nitrite neg Ua Occult Blood neg CBC Auto Diff 12/25/2013 White Blood Count 6.0 10^3/uL 4.8-10.8 Red Blood Count 4.21 10^6/uL 4.0-5.4 Hemoglobin 13.6 g/dL 12.0-16.0 Hematocrit 38 % 35-47 Mean Corpuscular Volume 91 fL 80-97 Mean Corpuscular Hemoglobin 32 pg High 27-31 Mean Corpuscular HGB Conc 36 g/dL 31-36 Red Cell Distribution Width 13 % 10.5-15 Platelet Count 146 10^3/uL Low 150-450 Mean Platelet Volume 8 um3 7.4-10.4 Abs Neutrophils 3.5 10^3/uL 1.5-7.7 Abs Lymphocytes 2.0 10^3/uL 1.0-4.8 Abs Monocytes 0.4 10^3/uL 0-0.8 Abs Eosinophils 0.1 10^3/uL 0-0.6 Abs Basophils 0.1 10^3/uL 0-0.2 Abs Nucleated RBC 0.01 10^3/uL Granulocyte % 58.4 % 38-83 Lymphocyte % 33.0 % 25-47 Monocyte % 6.7 % 1-9 Eosinophil % 1.0 % 0-6 Basophil % 0.9 % 0-2 Nucleated Red Blood Cells % 0.1 Inr/Protime 12/25/2013 Inr 0.94 0.85-1.06 Laboratory test 12/25/2013 D Dimer Quantitative < 200 ng/mL Less Than 230 51 finding Comp Metabolic Panel 12/25/2013 Sodium 138 mmol/L 133-145 Potassium 3.9 mmol/L 3.7-5.6 Chloride 103 mmol/L 101-111 Co2 Carbon Dioxide 30 mmol/L 22-32 Anion Gap 5 mmol/L 2-11 Glucose 89 mg/dL 70-100 Blood Urea Nitrogen 15 mg/dL 6-24 Creatinine 0.92 mg/dL 0.51-0.95 BUN/Creatinine Ratio 16.3 8-20 Calcium 9.3 mg/dL 8.6-10.3 Total Protein 7.1 g/dL 6.4-8.9 Albumin 4.2 g/dL 3.2-5.2 Globulin 2.9 g/dL 2-4 Albumin/Globulin Ratio 1.4 1-3 Total Bilirubin 0.40 mg/dL 0.2-1.0 Alkaline Phosphatase 66 U/L 34-104 Alt 13 U/L 7-52 Ast 16 U/L 13-39 Egfr Non- 65.4 >60 Egfr 84.1 >60 52 Laboratory test finding 12/25/2013 Creatine Kinase 77 U/L 10-223 CKMB 12/25/2013 CKMB ng/mL 1.7 ng/mL 0.6-6.3 Laboratory test finding 12/25/2013 Troponin I 0.00 ng/mL <0.03 53 TSH (Thyroid Stimulating Horm) 1.95 IU/mL 0.34-5.60 Ua Routine 11/29/2013 Ua Specific [place] 1.005 Ua PH 5 Ua Color yellow Ua Appera clear Ua WBC negative Ua Protein negative Ua Glucose negative Ua Ketones negative Ua Bilirubin negative Ua Urobilinogen normal Ua Nitrite negative Ua Occult Blood negative Laboratory test finding 11/09/2013 Hepatitis C Antibody Nonreactive Nonreactive Ua Routine 11/09/2013 Ua Specific [place] 1.0005 Ua PH 5 Ua Color pale Ua Appera clear Ua WBC neg Ua Protein neg Ua Glucose neg Ua Ketones neg Ua Bilirubin neg Ua Urobilinogen neg Ua Nitrite neg Ua Occult Blood neg Laboratory test finding 11/09/2013 Hemoglobin A1c 5.6 5-7 Laboratory test finding 05/12/2013 Hemoglobin A1c 5.4 % Less than 6.0 54 Glucose 96 mg/dL 70-100 55 Lipid Profile (Trig/Chol/HDL) 05/12/2013 Triglycerides 214 mg/dL High 40- 200 Cholesterol 250 mg/dL High Less than 200 HDL Cholesterol 43 mg/dL 40-60 56 Cholesterol/HDL Ratio 5.8 Average High 1-4.44 LDL Cholesterol 164.2 High Less Than 100 57 Laboratory test finding 05/12/2013 Vitamin B12 229 pg/mL 180-914 58 Methylmalonic Acid 0.21 nmol/mL <=0.40 59 Herpes Simplex Type 1&2 02/23/2013 Herpes Simplex Virus I Negative Negative Igg IgG AB Herpes Simplex Virus II IgG AB Positive Negative 60 HIV 1/2 AB Evaluation 02/23/2013 HIV 1 2 Antibody Nonreactive Nonreactive 61 GC/Chlamydia Amplified Rna 02/23/2013 GC/Chlamydia Rna (SEE NOTE) 62 Syphilis Screen 02/23/2013 Syphilis IgG Nonreactive Nonreactive 63 RPR TNP Nonreactive RPR Titer TNP Pediatric/Maternal NO HSV/VZV Derm PCR 11/08/2012 hs/VZ Source L THIGH hs/VZ PCR Result See Comment 64 Vitamin D, 25 Hydroxy 10/04/2012 25-Hydroxy Vitamin D2 <4.0 ng/mL 25-Hydroxy Vitamin D3 24 ng/mL 25-Hydroxy Vitamin D Total 24 ng/mL 65 Laboratory test finding 10/04/2012 TSH (Thyroid Stimulating 1.12 miu/mL 0.34-5.60 Horm) Vitamin B12 241 pg/mL 180-914 Laboratory test finding 04/30/2012 Glucose 89 mg/dL 70-100 Hemoglobin A1c 5.7 % Less than 6.0 66 Lipid Profile (Trig/Chol/HDL) 04/30/2012 Triglycerides 305 mg/dL High 40- 200 Cholesterol 238 mg/dL High Less than 200 67 HDL Cholesterol 39 mg/dL Low 40-60 68 Cholesterol/HDL Ratio 6.1 AVERAGE High 1-4.44 LDL Cholesterol 138.0 mg/dL High Less Than 100 CBC Auto Diff 03/08/2012 White Blood Count 7.8 CUMM 4.8-10.8 Red Cell Count 4.86 CUMM 4.2-5.4 Hemoglobin 15.7 g/dL 12.0-16.0 Hematocrit 44 % 35-47 Mean Corpuscular Volume 90 um3 79-97 Mean Corpuscular Hemoglob 32 pg High 27-31 Mean Corpuscular HGB Cone 36 g/dL 32-36 Redcell Distribution WDTH 13 % 10.5-15 Platelet Count 189 CUMM 150-450 Mean Platelet Volume 8.5 um3 7.4-10.4 Gran % 66.0 % 38-83 Lymph % 26.8 % 20-45 Mononuclear % 5.8 % 1-9 Eosinophil % 0.8 % 0-6 Basophil % 0.6 % 0-2 Abs Lymphs 2.1 1.0-4.8 Abs Mononuclear 0.4 0-0.8 Absolute Neutrophil Count 5.1 1.5-7.7 Abs Eosinophils 0.1 0-0.6 Abs Basophils 0 0-0.2 Comp Metabolic Panel 03/08/2012 Sodium 139 mmol/L 135-145 Potassium 3.4 mmol/L Low 3.5-5.0 Chloride 102 mmol/L 101-111 Co2 (Carbon Dioxide) 29.0 mmol/L 22-32 Anion Gap 8.0 mmol/L 2-11 69 Glucose 82 mg/dL 70-100 BUN 12 mg/dL 6-24 Creatinine 0.8 mg/dL 0.50-1.40 One Over Creatinine 1.25 BUN/Creatinine Ratio 15.0 8-20 Calcium 9.5 mg/dL 8.1-9.9 Total Protein 7.7 GM/DL 6.2-8.1 Albumin 4.4 GM/DL 3.6-5.4 Globulin 3.3 GM/DL 2-4 Albumin/Globulin Ratio 1.3 1-3 Bilirubin Total 0.7 mg/dL 0.4-1.5 70 Alkaline Phosphatase 93 U/L 30-110 Alt (SGPT) 22 U/L 14-54 Ast (Sgot) 25 U/L 12-42 eGFR Non- 77.6 > 60 eGFR 99.8 > 60 71 Laboratory test 03/05/2012 Culture <SEE 72 finding Sensitivity/Gram St NOTE> Laboratory test 02/11/2012 Lyme Disease Serology Negative Negative 73 finding 1 Because ethnic data is not always readily available, this report includes an eGFR for both -Americans and non- Americans. The National Kidney Disease Education Program (NKDEP) does not endorse the use of the MDRD equation for patients that are not between the ages of 18 and 70, are , have extremes of body size, muscle mass, or nutritional status, or are non- or non-. According to the National Kidney Foundation, irrespective of diagnosis, the stage of the disease is based on the level of kidney function: Stage Description GFR(mL/min/1.73 m(2)) 1 Kidney damage with normal or decreased GFR 90 2 Kidney damage with mild decrease in GFR 60-89 3 Moderate decrease in GFR 30-59 4 Severe decrease in GFR 15-29 5 Kidney failure <15 (or dialysis) 2 Normal Range 180 to 914 Indeterminate Range 145 to 180 Deficient Range <145 3 SEE RESULT BELOW Name: ZARINA ONEILL : [address]: Gonzalo Varela CONDUCTOR/ENGINEER Acct: [id number] Unit: [id number] AGE: 51 Location: [facility] Re12/05/16 SEX: F Status: REG REF SPEC: [id number] SCOTTY: 12/05/16-[address]: Gonzalo Varela NP REQ: [id number] RECD: 12/05/16-1012 STATUS: COMP _ SOURCE: URINE [facility]: ORDERED: Urine Culture Procedure Result Reported Site Urine Culture Final 12/06/16- 1413 ML <No reportable results for this procedure> * ML - MAIN LAB ([facility]) . END OF REPORT * ML=Testing performed at Main Lab DEPARTMENT OF PATHOLOGY, [address] [place] [address] Gene Mcknight M.D. Director [facility] # [id number] 4 SEE RESULT BELOW Name: ZARINA ONEILL : [address]: Cale Arnold MD Acct: [id number] Unit: [id number] AGE: 51 Location: [place] [address] Re12/05/16 Dis: 12/06/16 SEX: F Status: DIS Kenneth SPEC: [id number] SCOTTY: 12/05/16- SUBM DR: Cale Arnold MD REQ: [id number] RECD: 12/05/16 STATUS: SOUT _ ORDERED: LEVEL 3 FINAL DIAGNOSIS Appendix, appendectomy: -- Acute appendicitis and shannon-appendicitis. PRE-OPERATIVE DIAGNOSIS Appendicitis GROSS DESCRIPTION The specimen is received in formalin labeled, Appendix, and consists of a 6.8 cm appendix with moderate attached mesoappendix. The external diameter ranges from 0.6 cm to 1.1 cm in the mid to proximal specimen. There is a 2.0 cm superficial serosal defect 0.8 cm from the proximal margin. The remaining serosa is predominantly shaggy mottled guillermo- tran with a few focal fibromembranous adhesions and a small amount of adherent red-brown blood clot. The lumen measures up to 0.8 cm and contains brown fecal material. The proximal mucosa is dusky tran. The remaining mucosa is predominantly glistening, guillermo-white and the wall thickness measures up to 0.2 cm. Manager Lan sections, one cassette. Signed (signature on file) Jessica Michelle MD [id number] END OF REPORT * ML=Testing performed at Main Lab DEPARTMENT OF PATHOLOGY, [address] [place] [address] Gene Mcknight M.D. Director [facility] # [id number] 5 Because ethnic data is not always readily available, this report includes an eGFR for both -Americans and non- Americans. The National Kidney Disease Education Program (NKDEP) does not endorse the use of the MDRD equation for patients that are not between the ages of 18 and 70, are , have extremes of body size, muscle mass, or nutritional status, or are non- or non-. According to the National Kidney Foundation, irrespective of diagnosis, the stage of the disease is based on the level of kidney function: Stage Description GFR(mL/min/1.73 m(2)) 1 Kidney damage with normal or decreased GFR 90 2 Kidney damage with mild decrease in GFR 60-89 3 Moderate decrease in GFR 30-59 4 Severe decrease in GFR 15-29 5 Kidney failure <15 (or dialysis) 6 SEE RESULT BELOW Name: ZARINA ONEILL : [address]: Gonzalo Varela NP Acct: [id number] Unit: [id number] AGE: 51 Location: [facility] Re08/11/16 SEX: F Status: REG REF SPEC: [id number] SCOTTY: 08/11/[address]: Gonzalo Varela NP REQ: [id number] RECD: 08/11/16 STATUS: COMP _ SOURCE: URINE SPDESC: ORDERED: Urine Culture COMMENTS: [id number] Urine Source: Random Procedure Result Reported Site Urine Culture Final 08/13/16- 1029 ML No Growth (<1,000 CFU/mL) * ML - MAIN LAB ([facility]) . END OF REPORT * ML=Testing performed at Main Lab DEPARTMENT OF PATHOLOGY, [address] [place] [address] Gene Mcknight M.D. Director [facility] # [id number] 7 Check Mid July 03 Normal Range 180 to 914 Indeterminate Range 145 to 180 Deficient Range <145 9 REFERENCE VALUE <=1.0 (Negative) Test Performed by: [facility] [place] [address] Quality Control Analyst: Lm Knight II, M.D., Ph.D. 10 Negative for cANCA and pANCA patterns by immunofluorescence. ADDITIONAL INFORMATION This test was developed and its performance characteristics determined by [facility] in a manner consistent with CLIA requirements. This test has not been cleared or approved by the U.S. Food and Drug Administration. Test Performed by: [facility] [place] [address] Quality Control Analyst: Lm Knight II, M.D., Ph.D. 11 Test Performed by: [facility] [place] [address] Quality Control Analyst: Lm Knight II, M.D., Ph.D. 12 ADDITIONAL INFORMATION The thyroglobulin antibody testing method is an immunoenzymatic assay manufactured by [employer] and performed on the [employer] DXI 800. Values obtained from different assay methods or kits may be different and cannot be used interchangeably. The results cannot be interpreted as absolute evidence for the presence or absence of malignant disease. Test Performed by: [facility] [place] [address] Quality Control Analyst: Lm Knight II, M.D., Ph.D. 13 Acute inflammation: >10.00 14 REFERENCE VALUE <20.0 (Negative) Test Performed by: [place] [address] Quality Control Analyst: Lm Knight II, M.D., Ph.D. 15 Test Performed by: [place] [address] Quality Control Analyst: Lm Knight II, M.D., Ph.D. 16 REFERENCE VALUE <4.0 (Negative) Test Performed by: [place] [address] Quality Control Analyst: Lm Knight II, M.D., Ph.D. 17 Negative serology. Celiac disease unlikely. However, approximately 10% of patients with celiac disease are seronegative. Also, patients who are already adhering to a gluten-free diet may be seronegative. If celiac disease is highly clinically suspected, consider HLA-DQ typing. Test Performed by: [place] [address] Quality Control Analyst: Lm Knight II, M.D., Ph.D. 18 RESULT: 01:02,03 REFERENCE VALUE Not Applicable 19 RESULT: 03:02,06:02 DQ Serologic Equivalent: 8,6 REFERENCE VALUE Not Applicable 20 These genes are permissive for celiac disease. The absence of HLA celiac permissive genes would make the presence of celiac disease unlikely. However, these genes can also be present in the normal population. ADDITIONAL INFORMATION Method: Molecular typing of HLA antigens performed using reverse SSOP and/or SSP methods, reported as serological equivalents and low to medium resolution molecular values. Performing Laboratory CLIA# [id number] Test Performed by: [place] [address] Quality Control Analyst: Lm Knight II, M.D., Ph.D. 21 REFERENCE VALUE Not Applicable 22 RESULT: HLA-B27 antigen was not detected. ADDITIONAL INFORMATION Method: Flow Cytometry Performing Laboratory CLIA# [id number] Test Performed by: [place] [address] Quality Control Analyst: Lm Knight II, M.D., Ph.D. 23 Normal Range 180 to 914 Indeterminate Range 145 to 180 Deficient Range <145 24 Acute inflammation: >10.00 25 Because ethnic data is not always readily available, this report includes an eGFR for both -Americans and non- Americans. The National Kidney Disease Education Program (NKDEP) does not endorse the use of the MDRD equation for patients that are not between the ages of 18 and 70, are , have extremes of body size, muscle mass, or nutritional status, or are non- or non-. According to the National Kidney Foundation, irrespective of diagnosis, the stage of the disease is based on the level of kidney function: Stage Description GFR(mL/min/1.73 m(2)) 1 Kidney damage with normal or decreased GFR 90 2 Kidney damage with mild decrease in GFR 60-89 3 Moderate decrease in GFR 30-59 4 Severe decrease in GFR 15-29 5 Kidney failure <15 (or dialysis) 26 Acute inflammation: >10.00 27 Because ethnic data is not always readily available, this report includes an eGFR for both -Americans and non- Americans. The National Kidney Disease Education Program (NKDEP) does not endorse the use of the MDRD equation for patients that are not between the ages of 18 and 70, are , have extremes of body size, muscle mass, or nutritional status, or are non- or non-. According to the National Kidney Foundation, irrespective of diagnosis, the stage of the disease is based on the level of kidney function: Stage Description GFR(mL/min/1.73 m(2)) 1 Kidney damage with normal or decreased GFR 90 2 Kidney damage with mild decrease in GFR 60-89 3 Moderate decrease in GFR 30-59 4 Severe decrease in GFR 15-29 5 Kidney failure <15 (or dialysis) 28 Acute inflammation: >10.00 29 REFERENCE VALUE <20.0 (Negative) Test Performed by: [place] [address] Quality Control Analyst: Lm Knight II, M.D., Ph.D. 30 Serologic response to B. burgdorferi infection is not detected, but cannot rule out early infection during which low or undetectable antibody levels to B. burgdorferi may be present. If clinically indicated, a new serum specimen should be submitted in 7-14 days. Test Performed by: [place] [address] Quality Control Analyst: Lm Knight II, M.D., Ph.D. 31 Test Performed by: [place] [address] Quality Control Analyst: Lm Knight II, M.D., Ph.D. 32 PT IS FASTING 33 Desirable <150 Borderline high 150-199 High 200-499 Very High >500 34 Desirable <200 Borderline high 200-239 High >239 35 Low <40 Desirable: 40-60 High: >60 36 Desirable: <100 mg/dL Near Optimal: 100-129 mg/dL Borderline High: 130-159 mg/dL High: 160-189 mg/dL Very High: >189 mg/dL 37 FASTING 38 Desirable <150 Borderline high 150-199 High 200-499 Very High >500 39 Desirable <200 Borderline high 200-239 High >239 40 Low <40 Desirable: 40-60 High: >60 41 Desirable: <100 mg/dL Near Optimal: 100-129 mg/dL Borderline High: 130-159 mg/dL High: 160-189 mg/dL Very High: >189 mg/dL 42 Because ethnic data is not always readily available, this report includes an eGFR for both -Americans and non- Americans. The National Kidney Disease Education Program (NKDEP) does not endorse the use of the MDRD equation for patients that are not between the ages of 18 and 70, are , have extremes of body size, muscle mass, or nutritional status, or are non- or non-. According to the National Kidney Foundation, irrespective of diagnosis, the stage of the disease is based on the level of kidney function: Stage Description GFR(mL/min/1.73 m(2)) 1 Kidney damage with normal or decreased GFR 90 2 Kidney damage with mild decrease in GFR 60-89 3 Moderate decrease in GFR 30-59 4 Severe decrease in GFR 15-29 5 Kidney failure <15 (or dialysis) 43 Desirable <150 Borderline high 150-199 High 200-499 Very High >500 44 Desirable <200 Borderline high 200-239 High >239 45 Low <40 Desirable: 40-60 High: >60 46 Unable to calculate LDL as triglyceride is > 400 47 Because ethnic data is not always readily available, this report includes an eGFR for both -Americans and non- Americans. The National Kidney Disease Education Program (NKDEP) does not endorse the use of the MDRD equation for patients that are not between the ages of 18 and 70, are , have extremes of body size, muscle mass, or nutritional status, or are non- or non-. According to the National Kidney Foundation, irrespective of diagnosis, the stage of the disease is based on the level of kidney function: Stage Description GFR(mL/min/1.73 m(2)) 1 Kidney damage with normal or decreased GFR 90 2 Kidney damage with mild decrease in GFR 60-89 3 Moderate decrease in GFR 30-59 4 Severe decrease in GFR 15-29 5 Kidney failure <15 (or dialysis) 48 Therapeutic target for the treatment of diabetes Mellitus patients is <7% HBA1C, and in selective patients <6.0%.Please refer to [place] [employer] Diabetic care guidelines for further information. 49 FASTING 50 Desirable <100 Near Optimal 100-129 Borderline high 130-159 High 160-189 Very High >189 51 Please note: The following may produce a false positive D Dimer test: - Rheumatoid factor greater than 60 IU/ml - Plasma hemoglobin greater than 0.05 gm/dl - Bilirubin greater than 50 mg/dl - Lipids greater than 1000 mg/dl - FDP greater than 20 ug/ml 52 Because ethnic data is not always readily available, this report includes an eGFR for both -Americans and non- Americans. The National Kidney Disease Education Program (NKDEP) does not endorse the use of the MDRD equation for patients that are not between the ages of 18 and 70, are , have extremes of body size, muscle mass, or nutritional status, or are non- or non-. According to the National Kidney Foundation, irrespective of diagnosis, the stage of the disease is based on the level of kidney function: Stage Description GFR(mL/min/1.73 m(2)) 1 Kidney damage with normal or decreased GFR 90 2 Kidney damage with mild decrease in GFR 60-89 3 Moderate decrease in GFR 30-59 4 Severe decrease in GFR 15-29 5 Kidney failure <15 (or dialysis) 53 Reference Range and Interpretation: TnI (ng/mL) Interpretation Less Than 0.03 ng/mL Not supportive of diagnosis of CO 0.03 - 0.50 ng/mL Indeterminate: suggest serial studies if clinically indicated. Greater than 0.5 ng/mL Consistent with diagnosis of CO 54 Therapeutic target for the treatment of diabetes Mellitus patients is <7% HBA1C, and in selective patients <6.0%.Please refer to [place] [employer] Diabetic care guidelines for further information. 55 FASTING 10 HOUR 56 HDL Interpretation: Undesirable: High Risk: Less than 40 mg/dL Desirable: Low Risk: Greater than 60 mg/dL 57 LDL Interpretation: Low Risk Optimal Level: LDL Less than 100 mg/dL Near or Above Optimal: LDL 100-129 mg/dL Borderline High Risk: LDL 130-159 mg/dL High Risk: LDL 160-189 mg/dL Very High Risk: LDL Greater than 189 mg/dL 58 FASTING 10 HOUR 59 Test Performed by: [address] [address] Quality Control Analyst: Darrell Carl III, M.D. 60 Test Performed by: [address] [address] Quality Control Analyst: Darrell Carl III, M.D. 61 It is recognized that currently available assays for the detection of antibodies to HIV-1 and/or HIV-2 may not detect all infected individuals. HIV antibodies may be undetectable in some stages of the infection and in some clinical conditions. The performance of this assay has not been established for populations of infants or children. Assayed by Chemiluminescence Microparticle Immunoassay on the Siemens Advia Centaur CP. Values obtained with different methods or kits cannot be used interchangeably.The diagnostic specificity of the ADVIA Centaur 1/O/2 Enhanced assay in the low risk population was 99.90% (6052/6058) with a 95% confidence interval of 99.78 to 99.96%. 62 RUN DATE: 02/25/13 [facility] LIVE PAGE 1 RUN TIME: [address] [place] [address] Specimen Inquiry Name: NINOZARINA : [address]: Lupe Rodrigez MD Acct: [id number] Unit: [id number] AGE: 47 Location: [facility] Re02/23/13 SEX: F Status: REG REF SPEC: [id number] SCOTTY: 02/23/13-[address] [facility] [address]: Lupe Rodrigez MD REQ: [id number] RECD: 02/23/13 STATUS: COMP _ SOURCE: URINE [facility]: ORDERED: GC/Chlam RNA QUERIES: Medent Number [id number] Procedure Result Verified Site Chlamydia Trachomatis RNA Final 02/25/13- 1457 ML NEGATIVE for Chlamydia trachomatis rRNA GC (N. gonorrhoeae) RNA Final 02/25/13- 1444 ML NEGATIVE for Neisseria gonorrhoeae rRNA A negative result does not preclude the presence of a C. trachomatis or N. gonorrhoeae infection because results are dependent on adequate specimen collection, absence of inhibitors, and sufficient rRNA to be detected. Test results may be affected by improper specimen collection, improper storage, technical error, or specimen mixup. Limitations of the Procedure: The Aptima Combo 2 Assay is not intended for the evaluation of suspected sexual abuse or for other medico-legal indications. For those patients for whom a false positive result may have adverse psychosocial impact, the [facility] recommends retesting by a method using an alternate technology. Therapeutic failure or success cannot be determined with the Aptima Combo 2 Assay since nucleic acid may persist following appropriate antimicrobial therapy. Results from the Aptima Combo 2 Assay should be interpreted in conjunction with other laboratory and clinical data available to the clinican. CONTINUED ON NEXT PAGE * ML=Testing performed at Main Lab DEPARTMENT OF PATHOLOGY, [facility] [place] [address] Gene Mcknight M.D. Director [facility] Permit #[id number] RUN DATE: 02/25/13 [facility] LIVE PAGE 2 RUN TIME: 1458 [facility] [place], [place] [address] Specimen Inquiry Patient: ZARINA ONEILL [id number] (Continued) Specimen: [id number] Collected: 02/23/13 Received: 02/23/13-1811 (Continued) Procedure Result Verified Site GC (N. gonorrhoeae) RNA Final (continued) 02/25/13- 4 Performance characteristics for detecting C. trachomatis and N. gonorrhoeae are derived from high prevalence populations. Positive results in low prevalence populations should be interpreted carefully with the understanding that the likelihood of a false positive may be higher than a true positive. END OF REPORT * ML=Testing performed at Main Lab DEPARTMENT OF PATHOLOGY, [address] [place] [address] Gene Mcknight M.D. Director [facility] Permit #[id number] 63 Warning: A positive result is not useful for establishing a diagnosis of syphilis. In most situations, such a result may reflect a prior treated infection; a negative result can exclude a diagnosis of syphilis except for incubating or early primary disease. 64 Herpes simplex type II DNA detected. Negative for Varicella zoster DNA. -- REFERENCE VALUE -- Not applicable Analyte Specific Reagent: This test was developed and its performance characteristics determined by [facility]. It has not been cleared or approved by the U.S. Food and Drug Administration. Test Performed by: [place] [address] Quality Control Analyst: Darrell Carl III, M.D. 65 Interpretation: 10-24 (mild to moderate deficiency) -- REFERENCE VALUE -- 25-HYDROXY D TOTAL (D2+D3) Optimum levels in the normal population are 25-80 Test Performed by: [address] [address] Quality Control Analyst: Darrell Carl III, M.D. 66 Therapeutic target for the treatment of diabetes Mellitus patients is <7% HBA1C, and in selective patients <6.0%.Please refer to [place] [employer] Diabetic care guidelines for further information. 67 Desirable: Less than 200 MG/DL Borderline-High Risk: 200-239 MG/DL High-Risk: 240 MG/DL and over 68 HDL Interpretation: Undesirable: High Risk: Less than 40 MG/DL Desirable: Low Risk: Greater than 60 MG/DL 69 Anion gap measurement may be of limited value in the presence of any alkalosis, especially in a combined acid base disorder. . 70 A metabolite of Naproxen, O-desmethylnaproxen, has been shown to interfere with the Jendrassik-Francine method for measuring total bilirubin. Samples from patients who have taken Naproxen have shown spurious elevation in total bilirubin levels. 71 Because ethnic data is not always readily available, this report includes an eGFR for both -Americans and non- Americans. The National Kidney Disease Education Program (NKDEP) does not endorse the use of the MDRD equation for patients that are not between the ages of 18 and 70, are , have extremes of body size, muscle mass, or nutritional status, or are non- or non-. According to the National Kidney Foundation, irrespective of diagnosis, the stage of the disease is based on the level of kidney function: Stage Description GFR(mL/min/1.73 m(2)) 1 Kidney damage with normal or decreased GFR 90 2 Kidney damage with mild decrease in GFR 60-89 3 Moderate decrease in GFR 30-59 4 Severe decrease in GFR 15-29 5 Kidney failure <15 (or dialysis) 72 RUN DATE: 03/07/12 [facility] NMI LIVE PAGE 1 RUN TIME: 1019 Specimen Inquiry RUN USER: INTERFACE Name: ZARINA ONEILL Status: REG REF Re03/05/12 Age/Sex: 46/F Unit#: [id number] Location: [facility]. : 67 SPEC #: [id number] SCOTTY: 03/05/12-1254 STATUS: COMP REQ #: [id number] RECD: 03/05/[address] [facility] [address]: [facility] SOURCE: WOUND ENTR: 03/05/12-[address]: SETHC: UNSPECIFIE ORDERED: CULT SENS/GS QUERIES: MEDENT REQUISITION # [id number] ACT WKST: B 03/07/12 #1 Procedure Result Verified Site > CULTURE SENSITIVITY Final 03/07/12- 1019 ML NORMAL CUTANEOUS BRADLEY SUGGEST RESUBMISSION. > GRAM STAIN SMEAR Final 03/06/12- 0804 ML POLYS NONE SMEAR: FEW EPITHELIAL CELLS FEW GRAM POSITIVE COCCI ML - [facility] Permit #[id number] [address] [place] [address] DEPARTMENT OF PATHOLOGY, [address] [place] [address] [facility] Permit #[id number] Gene Mcknight M.D. Director Melva Reese M.D. [employer]liance Assembly Supervisor 73 Serologic response to B. burgdorferi infection is not detected, but cannot rule out early infection during which low or undetectable antibody levels to B. burgdorferi may be present. If clinically indicated, a new serum specimen should be submitted in 7-14 days. Test Performed by: [facility] - [address] [address] Quality Control Analyst: Darrell Carl III, M.D. Procedures Date CPT Code Description Status Comment 04/30/2018 Mammogram Completed 05/06/2017 Colonoscopy Completed 03/19/2017 Mammogram Completed 12/05/2016 [address]91 Laparoscopy, Surgical, Completed Appendectomy 12/05/2016 59654 Laparoscopy, Surgical, Completed Appendectomy 02/07/2016 Mammogram Completed 01/08/2015 Mammogram Completed 01/05/2014 Mammogram Completed 07/15/2013 Diabetic Retinal Eye Exam Completed Document: 07/15/13 - Consult Ophthalmology/Reich 01/04/2013 Mammogram Completed 11/25/2011 Bone Mineral Density Test Completed through Dr. Vila normal Encounters Type Date Location Provider CPT E/M Dx Office Visit 05/07/2018 2:00p [facility] [place] [address] H62.41 [place] Office Visit 12/31/2017 2:40p [facility] [place] [address] B00.89 [place] R53.83 Office Visit 11/25/2017 3:40p [facility] [place] [address] H81.10 [place] J01.90 Office Visit 10/28/2017 2:40p [facility] [place] [address] H81.10 [place] B00.89 F41.9 Office Visit 07/17/2017 2:20p [facility] [place] [address] J06.9 [place] Office Visit 05/28/2017 2:40p [facility] [place] [address] J01.90 [place] H81.10 Office Visit 03/16/2017 11:00a [facility] [place], [address] R10.30 [facility] FACS Office Visit 12/05/2016 11:15[place] [facility] [place], [address] K35.3 [facility] FACS Office Visit 12/04/2016 4:20p [facility] [place] [address] R10.9 [place] Office Visit 10/16/2016 2:20p [facility] [place] [address] J01.90 [place] Office Visit 08/12/2016 2:00p [facility] Nahun Reynoso, [address] M79.1 Of Pr Specialist M.D. R53.83 M54.5 M54.2 Office Visit 08/11/2016 4:20p [facility] [place] [address] R35.0 [place] F41.9 Office Visit 05/12/2016 1:00p [facility] [place] Reynoso, 48763 M79.1 Pr Specialist M.D. R53.83 M06.4 Office Visit 04/24/2016 2:00p [facility] [place], 23870 M06.4 Pr Specialist M.D. R53.83 M79.1 L13.0 R20.8 M54.5 M54.2 Office Visit 03/27/2016 3:40p [facility] [place] [address] R53.83 [place] M79.1 F41.1 Office Visit 11/02/2015 10:20a [facility] [place] [address] R05 - [place] Office Visit 10/05/2015 4:40p [facility] Gopi Thompson, 55957 R53.83 - [place] M.D. Office Visit 09/24/2015 3:40p [facility] [place] [address] J06.9 - [place] M79.1 Office Visit 05/14/2015 3:00p [facility] [place] [address] J06.9 - [place] Office Visit 02/20/2015 3:40p [facility] Amelia Wiggins, N.P. 26477 054.79 - [place] 386.11 Office Visit 11/27/2014 2:40p [facility] Edith Saldivar 59787 272.2 - [place] M.Juan M 386.10 Office Visit 09/08/2014 1:00p [facility] Edith Saldivar 59326 272.2 - [place] M.Juan M Office Visit 08/28/2014 1:40p [facility] Edith Saldivar 63183 V70.0 - [place] MKelly 272.2 790.21 788.41 v06.1 Office Visit 04/13/2014 3:20p [facility] Edith Saldivar 19184 719.45 - [place] M.Juan M Office Visit 02/16/2014 1:20p [facility] Edith Saldivar, 30120 054.79 - Dale Dimas 729.1 Office Visit 01/16/2014 2:20p [facility] Lupe Rodrigez M.D. 21082 054.79 - [place] Office Visit 11/29/2013 3:00p [facility] Amelia Wiggins, N.P. 07268 788.41 - [place] 782.1 789.07 300.02 Office Visit 11/09/2013 2:40p [facility] - Lupe Rodrigez M.D. 51460 788.41 [place] 790.21 300.02 054.79 V73.99 Office Visit 10/20/2013 9:00a [facility] Amelia Wiggins, N.P. 20005 787.91 - [place] Office Visit 10/07/2013 2:40p [facility] Amelia Wiggins, N.P. 86454 461.9 - [place] 386.11 Office Visit 07/06/2013 2:40p [facility] - Lupe Rodrigez M.D. 79809 695.3 [place] 372.39 Office Visit 05/11/2013 1:00p [facility] - Lupe Rodrigez M.D. 29102 V70.0 [place] 790.21 300.02 729.1 V41.3 266.9 Office Visit 04/08/2013 3:00p [facility] - Lupe Rodrigez M.D. 83042 V41.3 [place] 386.10 Office Visit 02/23/2013 2:20p [facility] - Lupe Rodrigez M.D. 71182 V74.5 [place] Office Visit 11/17/2012 4:00p [facility] - Lupe Rodrigez M.D. 15382 054.79 [place] Office Visit 11/08/2012 3:20p [facility] - Lupe Rodrigez M.D. 14024 054.79 [place] V41.3 Office Visit 10/04/2012 11:20a [facility] Lupe Rodrigez M.D. 29751 695.3 [place] 784.0 723.1 782.0 Office Visit 08/30/2012 2:40p [facility] - Lupe Rodrigez M.D. 98834 784.0 [place] 695.3 782.0 Office Visit 05/07/2012 2:20p [facility] - Lupe Rodrigez M.D. 82001 V70.0 [place] 272.0 790.21 692.83 695.3 373.00 Office Visit 03/24/2012 2:40p [facility] - Lupe Rodrigez M.D. 01831 300.02 [place] 682.6 719.46 692.83 Office Visit 03/10/2012 3:20p [facility] - Lupe Rodrigez M.D. 96331 682.6 [place] 300.02 Office Visit 03/05/2012 11:20a [facility] Amelia Wiggins, N.P. 28382 680.9 - [place] Office Visit 02/11/2012 2:20p [facility] Lupe Rodrigez M.D. 61809 338.4 - [place] 714.0 682.6 300.02 Office Visit 04/10/2011 2:20p Rheumatology Services Eder Francis M.D. 46188 338.4 Of [facility] 714.0 Office Visit 02/03/2011 4:00p [facility] Services Eder Francis M.D. 16534 338.4 Of Pr Specialist 714.0 Plan of Care 05/24/2018 - Gonzalo Varela, NPJ01.90 Acute sinusitis, unspecifiedNew Medication: Doxycycline Hyclate 100 mgComments:Complete the entire course of antibiotics, even if feeling better.Continue to use the flonase.Follow up:prn
--- OUTSIDE RECORDS SUMMARY | 2018-05-25 18:05 | XMS REPORT | Continuity of Care Document ---
:1965 External Reference #:[id number] Author Name Nata Mendes PA-C Address [address] Unavailable [place] [id number] Care Team Providers Name Role Phone Nichole [employer]ANK SYSTEMS MAINTAINER, Gonzalo Care Team Information Nematologist Unavailable Nichole [employer] SYSTEM[employer] MAINTAINER, Gonzalo Primary Care Physician Unavailable Payers Type Date Identification Numbers Payment Provider Subscriber Policy Number: [id number] [employer] Zarina Oneill PayID: [id number] [address] [address] [place] [address] Advance Directives Description No Information Available Problems Date Description Provider Status Onset: 04/24/2011 Asthma without status asthmaticus Tasha Peterson NP Active Onset: 04/24/2011 Allergic rhinitis Tasha Peterson NP Active Onset: 04/24/2011 Peripheral vertigo Aidan Ruiz MD Active Onset: 04/24/2011 Dysfunction of eustachian tube Aidan Ruiz MD Active Onset: 04/24/2011 Sensorineural hearing loss Aidan Ruiz MD Active Onset: 05/19/2018 Sensorineural hearing loss, bilateral Nata Mendes PA-C Active Onset: 05/19/2018 Otalgia Nata Mendes PA-C Active Onset: 03/18/2018 Other specified disorders of Aidan Ruiz MD Active Eustachian tube, bilateral Family History Date Family Member(s) Problem(s) Comments General Allergies General Asthma General Hearing Loss General Migraine General Vertigo Mother Diabetes Paternal Grandfather Skin Cancer Paternal Grandmother Diabetes Paternal Grandmother Heart Attack Paternal Grandmother Heart Disease Social History Type Date Description Comments Sex Unknown 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 Tobacco Use Start: Unknown Never Smoked Cigarettes Smoking Status Reviewed: 11/29/17 Never Smoked Cigarettes Tobacco Use Start: Unknown End: Unknown current.no Tobacco Use Start: Unknown End: Unknown current.no Smokeless Tobacco current.no ETOH Use Does not drink alcohol Tobacco Use Start: Unknown Patient has never smoked Allergies, Adverse Reactions, Alerts Date Description Reaction Status Severity Comments 12/04/2006 Bactrim Active 12/04/2006 Sulfa Active 12/04/2006 Erythromycin Active 12/04/2006 Effexor Active 12/04/2006 Prozac Active 11/30/2017 Noritate Active rash/cysts 11/30/2017 Zithromax Active stomach issues 11/30/2017 Paxil Active 11/30/2017 steroids Active panic Medications Medication Date Status Form Strength Qnty SIG Indications Ordering Provider Valacyclovir 10/12/ Active Tablets 1gm 30tab 1 tablet Nichole ZHANG, HCL 2018 s once daily Gonzalo KP Vitamin D3 08/11/ Active Capsules 2000Unit 30cap one tablet Nichole ZHANG , 2018 s daily Gonzalo Fluticasone 10/08/ Active Suspension 50mcg/Act 16uni 1 spray H93.93 Nichole ZHANG, Propionate 2016 ts each Gonzalo nostril daily as needed Meclizine HCL 01/02/ Active Tablets 25mg 60tab 1 PO tid as Aidan 2008 s Needed For EJimmy Ruiz, Dizziness Xanax 12/03/ Active Tablets 0.25mg prn Unknown 2006 Sudafed / Active Unknown Metrogel / Active Unknown Vistaril / Active Capsules 25mg 1-2 daily Unknown Zyrtec Allergy / Active Tablets 10mg 1 by mouth Unknown every day Menostar / Active Patches 14mcg/24H Apply 1 Unknown Weekly R Patch Every 6 Days Motrin Ib / Active Tablets 200mg 200-600MG Unknown prn Tylenol / Active Tablets ER 650mg as needed Unknown Arthritis Pain 0000 Vitamin B6 / Active Tablets 25mg as directed Unknown Vitamin B-12 / Active Tablets as directed Unknown Vitamin C / Active Chewtabs 500mg daily Unknown Calcium 500 +D / Active Tablets 500-400mg as directed Unknown 0000 -Unit Magnesium / Active Tablets 500mg as directed Unknown Ofloxacin / Active Solution 0.3% Nichole [employer] MAINTAINER, (Otic) 0000 Gonzalo Fluticasone / Active Suspension 50mcg/Act Nichole [employer] MAINTAINER, Propionate 0000 Gonzalo Hydroxyzine / Active Capsules 25mg Unknown Pamoate 0000 Noritate 10/30/ Hx Cream 1% 60uni Apply twice L71.8 Nichole [employer] SYSTEMS MAINTAINER, 2018 - ts daily Gonzalo 2017 Meclizine HCL 12/29/ Hx Tablets 25mg 30tab 1 tab by Aidan 2012 - s mouth every EJimmy Ruiz, hours as 2018 needed for vertigo Xopenex HFA 04/03/ Hx Aerosol 45mcg/Act 2unit 2 puffs as 493.90 Nahun Arredondo 2010 - s needed Panda 11/30/ Judie poe 2018 Zyrtec Allergy 02/27/ Hx Tablets 10mg 30tab 1 by mouth Aidan 2010 - s daily as Burton Ruiz, 12/29/ needed for 2012 allergies Rhinocort Aqua 01/02/ Hx Suspension 32mcg/Act 1unit 2 Sprays Aidan 2008 - s Intranasal Burton Ruiz, 02/27/ qd 2010 Viki 01/02/ Hx Tablets 60mg 60tab 1 PO qd November Aidan 2008 - s increase to Burton Ruiz, 02/27/ 2 tabs po 2010 qd Clarinex 04/26/ Hx Tablets 5mg 90tab 1 PO qd 477.8 Nahun Arredondo 2007 - s Panda 01/02/ Judie poe 2008 Nasacort Aq 04/06/ Hx Aerosol 55mcg/Act 1Mont 2 sprays 477.8 Aidan 2008 - h each Burton Ruiz, 01/02/ nostril 2008 daily Estradiol 12/03/ Hx Patches 0.05mg/Da Unknown Transdermal 2007 - y System 2010 Nortriptyline 12/03/ Hx Capsules 10mg Unknown 2006 - 2012 Zyrtec Allergy / Hx Unknown - 2010 Cataflam // Hx Unknown - 2010 Tramadol HCL /00/ Hx Unknown - 2012 Patanase // Hx Unknown - 2017 Doxycycline / Hx Capsules 100mg Nichole [employer] SYSTEMS MAINTAINER, Hyclate 0000 - Gonzalo 2017 Immunizations Description No Information Available Vital Signs Date Vital Result Comment 05/19/2018 2:42pm Weight 161.00 lb Weight 73.030 kg Height 68 inches 5'8" Height in cm's 172.7 cm BMI (Body Mass Index) 24.5 kg/m2 03/18/2018 2:23pm Weight 161.00 lb Weight 73.030 kg Height 68 inches 5'8" Height in cm's 172.7 cm BMI (Body Mass Index) 24.5 kg/m2 11/30/2017 2:04pm Weight 161.00 lb Weight 73.030 kg Height 68 inches 5'8" Height in cm's 172.7 cm BMI (Body Mass Index) 24.5 kg/m2 12/29/2012 3:11pm BP Systolic 136 mmHg BP Diastolic 75 mmHg Heart Rate 86 /min Respiratory Rate 16 /min Weight 171.00 lb Weight 77.566 kg Height 68 inches 5'8" Height in cm's 172.7 cm BMI (Body Mass Index) 26.0 kg/m2 05/15/2011 3:00pm BP Systolic 124 mmHg BP Diastolic 87 mmHg Heart Rate 83 /min Respiratory Rate 16 /min Weight 172.00 lb Weight 78.019 kg Height 67.5 inches 5'7.50" Height in cm's 171.4 cm BMI (Body Mass Index) 26.5 kg/m2 10/26/2008 9:08am Heart Rate 86 /min Respiratory Rate 16 /min Weight 125.00 lb Weight 56.700 kg 04/06/2008 10:08am BP Systolic 122 mmHg BP Diastolic 82 mmHg Heart Rate 89 /min Respiratory Rate 16 /min 12/14/2006 3:39pm BP Systolic 123 mmHg BP Diastolic 77 mmHg Heart Rate 93 /min Respiratory Rate 16 /min Results Description No Information Available Procedures Date Code Description Status 11/30/2017 02748 Tympanometry Completed 11/30/2017 58379 Comprehensive Audiogram Completed 06/18/2011 77093 Medical Records Completed 04/10/2011 49886 Medical Records Completed 04/03/2011 75438 Demonstration/Eval. Of Patient Utilization Of Completed Spacer/Nebulizer 04/03/2011 14473 Respiratory Flow Volume Loop Completed 04/03/2011 72958 Bronchospasm Evaluation Completed 04/06/2008 16169 Tympanometry Completed 12/14/2006 88973 Comprehensive Audiogram Completed Encounters Type Date Location Provider Dx Diagnosis Office Visit 03/18/2018 [place] Aidan Manrique H69.83 Other specified 2:15p 07/27/07 MD Joseph disorders of Eustachian tube, bilateral J30.2 Other seasonal allergic rhinitis R42 Dizziness and giddiness Office Visit 11/30/2017 [place] Nahun Arredondo G43.019 Migraine w/o 2:00p 07/27/07 Judie Phelan aura, intractable, without status migrainosus H90.3 Sensorineural hearing loss, bilateral Office Visit 12/29/2012 [place] Aidan Manrique 381.81 Dysfunction Of 3:00p 07/27/07 MD Joseph Eustachian Tube Office Visit 07/02/2011 [place] Kristen 386.10 Vertigo / 2:00p 07/27/07 Tasha [employer]ANK SYSTEMS MAINTAINER Unspecified 381.81 Dysfunction Of Eustachian Tube Office Visit 05/15/2011 3:00p [place] 07/27/07 Deepali Peterson7.8 Rhinitis , Tasha [employer]ANK SYSTEMS MAINTAINER Perenn[place], Allergy 493.90 Asthma, Allergic/Unspecified Office Visit 02/27/2011 [place] Aidan Manrique 386.10 Vertigo / 11:00a 07/27/07 MD Joseph Unspecified Office Visit 10/26/2008 [place] Aidan Manrique 477.8 Rhinitis, 9:00a 07/27/07 MD Joseph Perennial, Allergy 381.81 Dysfunction Of Eustachian Tube 386.10 Vertigo / Unspecified Office Visit 04/26/2008 [place] Minh Peterson.8 Rhinitis, 3:30p 07/27/07 Tasha [employer]ANK SYSTEMS MAINTAINER Perennial, Allergy Office Visit 04/06/2008 [place] Aidan Manrique 381.81 Dysfunction Of 10:00a 07/27/07 MD Joseph Eustachian Tube 389.10 Hearing Loss, Sensorineural/Unspecified 477.8 Rhinitis, Perennial, Allergy Office Visit 12/14/2006 [place] Aidan Manrique 386.10 Vertigo / 3:30p 07/27/07 MD Joseph Unspecified Plan of Treatment 05/19/2018 - BARTOLO Gandhi-CH92.01 Otalgia, right earH69.83 Other specified disorders of Eustachian tube, clhjzkqfgT18.2 Other seasonal allergic pyvidzcpV53.3 Sensorineural hearing loss, bilateralComments:Zarina is reassured that the infection has completely resolved. Since she is already been on drops for almost 3 weeks I have asked her to discontinue the drops. She has a history of temporomandibularjoint dysfunction which could also be contributing to the otalgia. For now no further intervention is required. She will return if she has any further questions or concerns.
--- OUTSIDE RECORDS SUMMARY | 2018-05-25 18:05 | XMS REPORT ---
:1965 External Reference #:[id number] Author Organization [facility] Address [address] [place] [address] [place] [address] Phone [phone] Care Team Providers Name Role Phone Edith Saldivar MD Primary Care Physician Unavailable Payers Type Date Identification Numbers Payment Provider Subscriber Commercial Policy Number: [id number] Todays Option/[place] pr Zarina Oneill PayID: [id number] [address] [address] Attn: [place] [address] Medigap Part B Expires: 2016 Policy Number: [id number] Medicare Zarinaluke Matthewsble PayID: [id number] [address] [place] [address] Medigap Part B Expires: 2012 Policy Number: [id number] Medicaid Zarina Nino Group Name: 1 1 [address] PayID: [id number] [place] [address] Commercial Effective: Policy Number: [employer] Zarinaluke Matthewsble 2012 [id number] Medicaid Expires: 2016 Group Name: [id number] [address] [address] PayID: [id number] [place] [address] Medigap Part B Effective: 2016 Policy Number: [id number] Medicaid Zarina Nino Expires: 2016 Group Name: 1 1 [address] PayID: [id number] [place] [address] Problems Date Description Provider Status Onset: 02/11/2012 [...] 86 Years) Father Alzheimer's Disease lives at [facility] Mother Diabetes living at age 79 Mother [...] good relationship 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 [...] Form Strength Qnty SIG Indications Ordering Provider Metrogel 12/11 Active Gel 1% 60uni apply twice L71.8 ts daily as LEATHA Varela directed (please give in tube , not pump) Valacyclovir 10/12 Active Tablets 1gm 30tab 1 tablet Gonzalo HCL s once daily LEATHA Varela KP Vitamin D3 08/11 Active Capsules 2000Unit 30cap one tablet Gonzalo s daily LEATHA Varela Fluticasone 10/08 Active Suspension 50mcg/Act 16uni 1 spray H93.93 Gonzalo Propionate ts each LEATHA Varela nostril daily as needed Zyrtec Allergy 02/20 Active Capsules 10mg 180ca 1 by mouth ps twice a day LEATHA Varela Xanax Active Tablets 0.25mg 20tab one by Unknown /0000 s mouth up to four times daily [...] by mouth Gonzalo s three times Nichole, CROCHET MACHINE OPERATOR a day as needed Metronidazole 12/08 Hx Gel 0.75% 45gm apply twice L71.8 Gonzalo daily as Nichole, CROCHET MACHINE OPERATOR - directed 12/31 Doxycycline 11/27 Hx Capsules 100mg 8caps one tablet J06.9 Gonzalo Hyclate twice daily Nichole, CROCHET MACHINE OPERATOR - for 4 more 12/01 days. Metrogel 11/23 Hx Gel 1% 60uni apply twice L71.8 Gonzalo ts daily as Nichole, CROCHET MACHINE OPERATOR - directed 12/08 (please give in tube , not pump) Noritate 10/30 Hx Cream 1% 60gm Apply twice L71.8 Gonzalo daily Nichole, CROCHET MACHINE OPERATOR - 11/21 Doxycycline 07/17 Hx Capsules 100mg 20cap one tablet J06.9 Gonzalo Hyclate s twice daily Nichole, CROCHET MACHINE OPERATOR - for 10 07/26 days. Doxycycline 05/28 Hx Capsules 100mg 20cap one tablet J01.90 Gonzalo Hyclate /2016 s twice daily Nichole, CROCHET MACHINE OPERATOR - for 10 06/07 days. Vitamin D 03/03 Hx Capsules 1000Unit 30cap 1 by mouth Gonzalo (Cholecalcifero /2016 s once a day Nichole, CROCHET MACHINE OPERATOR l) - 08/11 Vitamin D High 12/04 Hx Capsules 2000mg 60cap 1 by mouth Gonzalo Potency s every day Nichole, CROCHET MACHINE OPERATOR - 03/03 Vitamin B-12 ER 12/04 Hx Tablets ER 500mcg 30tab 1 by mouth Gonzalo /2016 s every day Nichole, CROCHET MACHINE OPERATOR - 05/28 Metoclopramide 05/11 Hx Tablets 5mg 14tab one tablet R10.9 Gonzalo HCL s every 8 Nichole, CROCHET MACHINE OPERATOR - hours as 05/28 needed. Doxycycline 10/16 Hx Capsules 100mg 20cap one tablet J01.90 Gonzalo Hyclate s twice daily Nichole, CROCHET MACHINE OPERATOR - for 10 10/24 days. Vitamin D2 08/06 Hx Tablets 2000Unit 90tab 1 by mouth Gonzalo s every day Nichole, CROCHET MACHINE OPERATOR - 11/20 Meloxicam 04/24 Hx Tablets 7.5mg 30tab take one s tab twice Edgardo, - daily as M.D. 08/12 needed for pain, avoid other nsaids Ergocalciferol 04/01 Hx Capsules [id number] 12cap 1 tab by Gonzalo s mouth every Nichole, CROCHET MACHINE OPERATOR - week 08/06 Metronidazole 10/17 Hx Gel 0.75% 45gm apply 1 L71.8 application Cotton, - topically M.D. 10/17 to area twice daily Metrogel 10/17 Hx Gel 1% 60uni apply twice L71.8 ts daily as Nichole, CROCHET MACHINE OPERATOR - directed 10/30 (please give in tube , not pump) Nasacort 09/26 Hx Aerosol 55mcg/Act 10.80 use 2 J06.9 Gonzalo Allergy 24HR 0ml sprays each Nichole, CROCHET MACHINE OPERATOR - nostril 09/27 twice daily. Nasonex Hx Suspension 50mcg/Act 17gm two sprays J06.9 Gonzalo each Nichole, CROCHET MACHINE OPERATOR - nostril 09/26 once daily for 2 weeks. Amoxicillin 05/14 Hx Tablets 500mg 14tab 1 tab by J06.9 Edwin s mouth twice Mcpherson, CROCHET MACHINE OPERATOR - a day times 7 days Valacyclovir 03/21 Hx Tablets 500mg 18tab 1 by mouth Gonzalo HCL s twice daily Nichole, CROCHET MACHINE OPERATOR - for 3 days 10/12 as needed Zovirax 02/06 Hx Cream 5% 5gm Apply thin film 5 Cotton, - times daily M.D. 05/28 as needed for rash Valacyclovir 12/25 Hx Tablets 1gm 21tab 1 by mouth s three times Cotton, - a day [...] Cotton, - as needed M.D. 08/21 for pain Lidoderm 02/21 Hx Patches 5% 90uni 1-2 patches ts daily on Cotton, - for 12 M.D. then off for 12 hours as needed [...] Hx Tablets 875-125mg 20tab one tablet 461.9 anat s by mouth Varn, N.P. Potassium - twice daily 10/17 for 10 days Valacyclovir 07/15 Hx Tablets 1gm 21tab 1 po tid 054.79 Lupe HCL s for 7 days Rain, - M.D. 10/07 Fluticasone 05/11 Hx Suspension 50mcg/Act 16gm 1 spray V41.3 Lupe each Rain - nostril M.D. 04/13 daily needed Vitamin D-3 11/08 Hx Tablets 400Unit 90tab 1 po qd s Manas Rodrigez M.D. 10/07 Cod Liver Oil 11/08 Hx Capsules Manas Rodrigez M.D. 04/13 Metronidazole 10/06 Hx Gel 1% 45gm apply twice 695.3 daily Rain, Manas M.D. 11/29 Cefuroxime 10/04 Hx Tablets 250mg 20tab 1 tablet by Lupe Axetil s mouth twice Rain, - daily for M.D. 11/08 Metronidazole 09/06 Hx Gel 0.75% 45gm Apply 1 695.3 application Rain, - topically M.D. 11/08 to area 2 times per day Metronidazole 09/03 Hx Gel 1% 45gm apply twice 695.3 daily Manas Rodrigez M.D. 09/06 Levaquin 03/05 Hx Tablets 500mg 10tab 1 po daily 680.9 Amelia s for 10 days Varn, N.P. - 03/05 Augmentin 03/05 Hx Tablets 875-125mg 20tab one by Amelia /2012 s mouth every Varn, N.P. - 12 hours 03/15 for days Doxycycline 02/10 Hx Capsules 100mg 28cap one tablet 682.6 Lupe Mooney s twice daily Rain, - until gone M.D. 03/10 Cataflam 02/03 Hx Eder Judie Francis - 02/03 Gabapentin 02/03 Hx Capsules 100mg 30cap 1 qhs s Judie Francis - 02/10 Meloxicam 02/03 Hx Tablets 7.5mg 30tab 1 po qd s Judie Francis - 02/10 Nortriptyline Hx Capsules 10mg 60cap take 1 Unknown HCL /0000 s capsule - orally 08/30 twice a day /2012 Climara Hx Patches 0.0375mg/ 1 Unknown /0000 Weekly 24HR transdermal - ly qweek 03/24 Metrogel Hx Gel 1% 60gm apply twice 695.3 Lupe /0000 daily Manas Rodrigez M.D. 09/03 Zyrtec Allergy 00 Hx Capsules 10mg 30cap 1 po qd prn Lupe /0000 s Manas Rodrigez M.D. 08/28 Benadryl Hx Capsules 25mg 60cap 2- 4 tabs Unknown Allergy /0000 s for - allergies 02/20 Valacyclovir 00/00 Hx Tablets 1gm 21tab 1 [...] 7 days Manas Rodrigez M.D. 04/08 Nortriptyline Hx Capsules 10mg 30cap 1 po every Unknown HCL /0000 s day - 11/09 Estradiol Hx Tablets 0.25mg 30tab 1 po qd Unknown /0000 s - 05/11 Nortriptyline Hx Capsules 10mg 90cap 1 tab by Unknown HCL /0000 s mouth every - night as 08/28 Tramadol HCL 0000 Hx Tablets 50mg 1-2 tablets Unknown /0000 every 6 - hours as 11/01 Metaxalone 00/00 Hx Tablets 800mg as needed Unknown /0000 - 12/04 Advil Declan Hx Chewtabs 100mg Unknown Strength /0000 - 10/04 Metaxalone 00/00 Hx Tablets 400mg 1/2 tablet Unknown /0000 daily as - needed 12/04 Arnica [place] 00/00 Hx Pellet 4 tabs Unknown /0000 sublingual - bid 05/28 Vitamin B 6 00/00 Hx Tablets 25mg 1/2 tab qd Unknown /0000 - 07/17 Doxycycline 00/00 Hx Capsules 100mg Jesica Damon /0000 MD Jonah - 08/11 Immunizations CPT Code Status Date Vaccine Lot # [id number] Given 03/21/2016 Flu Vaccine NOS [id number] Given 08/28/2014 Tdap - Tetanus/Diptheria/Acellular Pertussis [id number] Vital Signs Date Vital Result Comment 05/07/2018 Height 67.5 inches 5'7.50" Weight 167.00 [...] >60 5 Ua Routine 12/04/2016 Ua Specific [place] 1.010 Ua PH 6 Ua Color yellow Ua Appera clear Ua WBC tr Ua Protein neg Ua Glucose neg Ua Ketones norm Ua Bilirubin norm Ua Urobilinogen norm Ua Nitrite neg Ua Occult Blood neg Ua Routine 08/11/2016 Ua Specific [place] 1.005 Ua PH 7.5 Ua Color yellow [...] High 0-14 Ua Routine 10/05/2015 Ua Specific [place] 1.005 Ua PH yellow Ua Color grady [...] 37, 50 Ua Routine 08/28/2014 Ua Specific [place] 1.005 Ua PH 7 Ua Color yellow [...] IU/mL 0.34-5.60 Ua Routine 11/29/2013 Ua Specific [place] 1.005 Ua PH 5 Ua Color yellow Ua Appera clear Ua WBC negative Ua Protein negative Ua Glucose negative Ua Ketones negative Ua Bilirubin negative Ua Urobilinogen normal Ua Nitrite negative Ua Occult Blood negative Laboratory test finding 11/09/2013 Hepatitis C Antibody Nonreactive Nonreactive Ua Routine 11/09/2013 Ua Specific [place] 1.0005 Ua PH 5 Ua Color pale [...] Range <145 3 SEE RESULT BELOW Name: NINOZARINA : [address]: Gonzalo Varela NP Acct: [id number] Unit: [id number] AGE: 51 Location: [facility] Re12/05/16 SEX: F Status: REG REF SPEC: [id number] SCOTTY: 12/05/[address] [facility] [address]: Gonzalo Varela NP REQ: [id number] RECD: 12/05/16 STATUS: COMP _ SOURCE: URINE SPDESC: ORDERED: Urine Culture Procedure Result Reported Site Urine Culture Final 12/06/16- 1413 ML <No reportable results for this procedure> * ML - MAIN LAB ([facility]) . END OF REPORT * ML=Testing performed at Main Lab DEPARTMENT OF PATHOLOGY, [address] [address] Gene Mcknight M.D. Director [facility] # [id number] 4 SEE RESULT BELOW Name: ZARINA ONEILL : [address]: Cale Arnold MD Acct: [id number] Unit: [id number] AGE: 51 Location: [facility] 350-02 Re12/05/16 Dis: 12/06/16 SEX: F Status: DIS Kenneth SPEC: [id number] SCTOTY: 12/05/16- SUBM DR: Cale Arnold MD REQ: [id number] RECD: 12/05/16-1628 STATUS: SOUT _ ORDERED: LEVEL 3 FINAL [...] wall thickness measures up to 0.2 cm. Emergency Response Officer sections, one cassette. Signed (signature on file) Jessica Michelle MD 1118 END OF REPORT * ML=Testing performed at Main Lab DEPARTMENT OF PATHOLOGY, [address] [address] Gene Mcknight M.D. Director [facility] # [id number] 5 Because ethnic data is not always [...] (or dialysis) 6 SEE RESULT BELOW Name: NINOZARINA : [address]: Gonzalo Varela NP Acct: [id number] Unit: [id number] AGE: 51 Location: [facility] Re08/11/16 SEX: F Status: REG REF SPEC: [id number] SCOTTY: 08/11/[address]: Gonzalo Varela NP REQ: [id number] RECD: 08/11/16 STATUS: COMP _ SOURCE: URINE SPDESC: ORDERED: Urine Culture COMMENTS: [id number] Urine Source: Random Procedure Result Reported Site Urine Culture Final 08/13/16- 1029 ML No Growth (<1,000 CFU/mL) * ML - [facility] ([facility]) . END OF REPORT * ML=Testing performed at Main Lab DEPARTMENT OF PATHOLOGY, [address] [address] Gene Mcknight M.D. Director [facility] # [id number] 7 Check Mid July 03 Normal Range 180 to 914 Indeterminate Range 145 to 180 Deficient Range <145 9 REFERENCE VALUE <=1.0 (Negative) Test Performed by: [address] [address] Mammography Technician: Lm Knight II, M.D., Ph.D. 10 Negative for cANCA and pANCA patterns by immunofluorescence. ADDITIONAL INFORMATION This test was developed and its performance characteristics determined by [facility] in a manner consistent with CLIA requirements. This test has not been cleared or approved by the U.S. Food and Drug Administration. Test Performed by: [place] [address] Mammography Technician: Lm Knight II, M.D., Ph.D. 11 Test Performed by: [place] [address] Mammography Technician: Lm Knight II, M.D., Ph.D. 12 ADDITIONAL INFORMATION The thyroglobulin antibody testing method is an immunoenzymatic assay manufactured by [employer]. and performed on the [employer] DXI 800. Values obtained from different assay methods or kits may be different and cannot be used interchangeably. The results cannot be interpreted as absolute evidence for the presence or absence of malignant disease. Test Performed by: [place] [address] Mammography Technician: Lm Knight II, M.D., Ph.D. 13 Acute inflammation: >10.00 14 REFERENCE VALUE <20.0 (Negative) Test Performed by: [place] [address] Mammography Technician: Lm Knight II, M.D., Ph.D. 15 Test Performed by: [place] [address] Mammography Technician: Lm Knight II, M.D., Ph.D. 16 REFERENCE VALUE <4.0 (Negative) Test Performed by: [place] [address] Mammography Technician: Lm Knight II, M.D., Ph.D. 17 Negative serology. Celiac disease unlikely. However, approximately 10% of patients with celiac disease are seronegative. Also, patients who are already adhering to a gluten-free diet may be seronegative. If celiac disease is highly clinically suspected, consider HLA-DQ typing. Test Performed by: [facility] [place] [address] Mammography Technician: Lm Knight II, M.D., Ph.D. 18 RESULT: [...] medium resolution molecular values. Performing Laboratory CLIA# [id number] Test Performed by: [place] [address] Mammography Technician: Lm Knight II, M.D., Ph.D. 21 REFERENCE VALUE Not Applicable 22 RESULT: HLA-B27 antigen was not detected. ADDITIONAL INFORMATION Method: Flow Cytometry Performing Laboratory CLIA# [id number] Test Performed by: [address] [address] Mammography Technician: Lm Knight II, M.D., Ph.D. 23 Normal [...] REFERENCE VALUE <20.0 (Negative) Test Performed by: [place] [address] Mammography Technician: Lm Knight II, M.D., Ph.D. 30 Serologic response to B. burgdorferi infection is not detected, but cannot rule out early infection during which low or undetectable antibody levels to B. burgdorferi may be present. If clinically indicated, a new serum specimen should be submitted in 7-14 days. Test Performed by: [place] [address] Mammography Technician: Lm Knight II, M.D., Ph.D. 31 Test Performed by: [place] [address] Mammography Technician: Lm Knight II, M.D., Ph.D. 32 PT [...] and in selective patients <6.0%.Please refer to [place] [employer] Diabetic care guidelines for further [...] 0.03 ng/mL Not supportive of diagnosis of AR 0.03 - 0.50 ng/mL Indeterminate: suggest serial studies if clinically indicated. Greater than 0.5 ng/mL Consistent with diagnosis of AR 54 Therapeutic target for the treatment of diabetes Mellitus patients is <7% HBA1C, and in selective patients <6.0%.Please refer to [place] [employer] Diabetic care guidelines for further [...] FASTING 10 HOUR 59 Test Performed by: [place] [address] Mammography Technician: Darrell Carl III, M.D. 60 Test Performed by: [place] [address] Mammography Technician: Darrell Carl III, M.D. 61 It is [...] in the low risk population was 99.90% (6052/6028) with a 95% confidence interval of 99.78 to 99.96%. 62 RUN DATE: 02/25/13 [facility] LAB LIVE PAGE 1 RUN TIME: [address] [place] [address] Specimen Inquiry Name: ZARINA ONEILL : [address]: Lupe Rodriegz MD Acct: [id number] Unit: [id number] AGE: 47 Location: [facility] Re02/23/13 SEX: F Status: REG REF SPEC: [id number] SCOTTY: 02/23/13-[address] [facility] [address]: Lupe Rodrigez MD REQ: [id number] RECD: 02/23/13 STATUS: COMP _ SOURCE: URINE SPDESC: ORDERED: GC/Susana RNA QUERIES: Medent Number [id number] Procedure Result Verified Site Chlamydia Trachomatis RNA [...] result may have adverse psychosocial impact, the [facility] recommends retesting by a method using an [...] performed at Main Lab DEPARTMENT OF PATHOLOGY, [facility] [place], [place] [address] Gene Mcknight M.D. Director [facility] Permit #[id number] RUN DATE: 02/25/13 [facility] LAB LIVE PAGE 2 RUN TIME: 1721 [facility] [employer] [place], [place] [address] Specimen Inquiry Patient: ZARINA ONEILL [id number] (Continued) Specimen: [id number] Collected: 02/23/13 Received: 02/23/13-1811 (Continued) Procedure Result Verified Site GC (N. gonorrhoeae) RNA Final (continued) 02/25/13 1619 Performance characteristics for detecting C. trachomatis and N. gonorrhoeae are derived from high prevalence populations. Positive results in low prevalence populations should be interpreted carefully with the understanding that the likelihood of a false positive may be higher than a true positive. END OF REPORT * ML=Testing performed at Main Lab DEPARTMENT OF PATHOLOGY, [address] [place] [address] Gene Mcknight M.D. Director [facility] Permit #[id number] 63 Warning: A positive result is not [...] developed and its performance characteristics determined by [facility]. It has not been cleared or approved by the U.S. Food and Drug Administration. Test Performed by: [place] [address] Mammography Technician: Darrell Carl III, M.D. 65 Interpretation: 10-24 (mild to moderate deficiency) -- REFERENCE VALUE -- 25-HYDROXY D TOTAL (D2+D3) Optimum levels in the normal population are 25-80 Test Performed by: [place] [address] Mammography Technician: Darrell Carl III, M.D. 66 Therapeutic target for the treatment of diabetes Mellitus patients is <7% HBA1C, and in selective patients <6.0%.Please refer to [place] [employer] Diabetic care guidelines for further [...] has been shown to interfere with the Scott- method for measuring total bilirubin. Samples from [...] <15 (or dialysis) 72 RUN DATE: 03/07/12 [facility] NMI LIVE PAGE 1 RUN TIME: 1019 Specimen Inquiry RUN USER: INTERFACE Name: ZARINA ONEILL Zeus Status: REG REF Re03/05/12 Age/Sex: 46/F Unit#: [id number] Location: [facility]. : 67 SPEC #: [id number] SCOTTY: 03/05/12 STATUS: COMP REQ #: [id number] RECD: 03/05/[address] [facility] [address]: Amelia Pennington SOURCE: WOUND ENTR: 03/05/[address] [facility] [address]: SETHC: UNSPECIFIE ORDERED: CULT SENS/GS QUERIES: MEDENT REQUISITION # [id number] ACT WKST: B 03/07/12 #1 Procedure Result Verified Site > CULTURE SENSITIVITY Final 03/07/12- 1019 ML NORMAL CUTANEOUS BRADLEY SUGGEST RESUBMISSION. > GRAM STAIN SMEAR Final 03/06/12- 0804 ML POLYS NONE SMEAR: FEW EPITHELIAL CELLS FEW GRAM POSITIVE COCCI ML - [facility] Permit #[id number] [address] [place] [address] DEPARTMENT OF PATHOLOGY, [address] [place] [address] [facility] Permit #[id number] Gene Mcknight M.D. Director Melva Reese M.D. Can Dragger 73 Serologic response to B. burgdorferi infection is not detected, but cannot rule out early infection during which low or undetectable antibody levels to B. burgdorferi may be present. If clinically indicated, a new serum specimen should be submitted in 7-14 days. Test Performed by: [facility] - [address] [address] Mammography Technician: Darrell Carl III, M.D. Procedures Date CPT Code Description Status Comment 04/30/2018 Mammogram Completed 05/06/2017 Colonoscopy Completed 03/19/2017 Mammogram Completed 12/05/2016 [address]93[address] Laparoscopy, Surgical, Completed Appendectomy 12/05/2016 79532 Laparoscopy, Surgical, Completed Appendectomy 02/07/2016 Mammogram Completed 01/08/2015 Mammogram Completed 01/05/2014 Mammogram Completed 07/15/2013 Diabetic Retinal Eye Exam Completed Document: 07/15/13 - Consult Ophthalmology/Reich 01/04/2013 Mammogram Completed 11/25/2011 Bone Mineral Density Test Completed through Dr. Vila normal Encounters Type Date Location Provider CPT E/M Dx Office Visit 12/31/2017 2:40p [facility] Internal Medicine - Gonzalo Varela, LEATHA [address] B00.89 Ullin R53.83 Office Visit 11/25/2017 3:40p [facility] Internal Medicine - Gonzalo Varela, LEATHA [address]369 H81.10 Ullin J01.90 Office Visit 10/28/2017 2:40p [facility] [place] [address] H81.10 Ullin B00.89 F41.9 Office Visit 07/17/2017 2:20p [facility] Internal Medicine - Gonzalo Varela, LEATHA [address]898 J06.9 Ullin Office Visit 05/28/2017 2:40p [facility] Internal Medicine - Gonzalo Varela, LEATHA [address] J01.90 Ullin H81.10 Office Visit 03/16/2017 11:00a [facility] [place], [address] [facility] FACS Office Visit 12/05/2016 11:15a [facility] [place], [address] [facility] FACS Office Visit 12/04/2016 4:20p [facility] [place] [address] R10.9 Ullin Office Visit 10/16/2016 2:20p [facility] [place] [address] J01.90 Ullin Office Visit 08/12/2016 2:00p [facility]ology Services Nahun Reynoso [address] [facility] IdrisDJimmy R53.83 M54.5 M54.2 Office Visit 08/11/2016 4:20p [facility] [place] [address] R35.0 Ullin F41.9 Office Visit 05/12/2016 1:00p [facility] Of Nahun Reynoso [address]07 M79.1 Santosh Dimas R53.83 M06.4 Office Visit 04/24/2016 2:00p [facility] Nahun Reynoso, [address] [facility] Zeus.DJimmy R53.83 M79.1 L13.0 R20.8 M54.5 M54.2 Office Visit 03/27/2016 3:40p [facility] [place] [address] R53.83 Ullin M79.1 F41.1 Office Visit 11/02/2015 10:20a [facility] Internal Medicine Gonzalo Varela, LEATHA [address] R05 - Ullin Office Visit 10/05/2015 4:40p [facility] Internal Medicine Gopi Thompson, 37367 R53.83 - Ullin M.D. Office Visit 09/24/2015 3:40p [facility] Internal Medicine Gonzalo Varela, LEATHA [address]903 J06.9 - Ullin M79.1 Office Visit 05/14/2015 3:00p [facility] Internal Medicine Edwin McphersonLEATHA 40511 J06.9 - Ullin Office Visit 02/20/2015 3:40p [facility] Internal Medicine Amelia Wiggins, N.P. 42344 054.79 - Ullin 386.11 Office Visit 11/27/2014 2:40p [facility] Internal Medicine Edith Saldivar [address] 272.2 - Ullin Judie 386.10 Office Visit 09/08/2014 1:00p [facility] Internal Medicine Edith Saldivar 81989 272.2 - Ullin M.D. Office Visit 08/28/2014 1:40p [facility] Internal Medicine Edith Saldivar, 31936 V70.0 - Dale Dimas 272.2 790.21 788.41 v06.1 Office Visit 04/13/2014 3:20p [facility] Internal Medicine Edith Saldivar 64729 719.45 - Ullin M.DJimmy Office Visit 02/16/2014 1:20p [facility] Internal Medicine Edith Saldivar 67711 054.79 - Ullin Judie 729.1 Office Visit 01/16/2014 2:20p [facility] Internal Medicine Lupe Rodrigez M.D. 38957 054.79 - Ullin Office Visit 11/29/2013 3:00p [facility] Internal Medicine Amelia Wiggins, N.P. 33365 788.41 - Ullin 782.1 789.07 300.02 Office Visit 11/09/2013 2:40p [facility] Internal Medicine - Lupe Rodrigez M.D. 45370 788.41 Ullin 790.21 300.02 054.79 V73.99 Office Visit 10/20/2013 9:00a [facility] Internal Medicine Amelia Wiggins, N.P. 24601 787.91 - Ullin Office Visit 10/07/2013 2:40p [facility] Internal Medicine Amelia Wiggins, N.P. 78084 461.9 - Ullin 386.11 Office Visit 07/06/2013 2:40p [facility] Internal Medicine - Lupe Rodrigez M.D. 34475 695.3 Ullin 372.39 Office Visit 05/11/2013 1:00p [facility] Internal Medicine - Lupe Rodrigez M.D. 78243 V70.0 Ullin 790.21 300.02 729.1 V41.3 266.9 Office Visit 04/08/2013 3:00p [facility] Internal Medicine - Lupe Rodrigez M.D. [id number] V41.3 Ullin 386.10 Office Visit 02/23/2013 2:20p [facility] Internal Medicine - Lupe Rodrigez M.D. 79022 V74.5 Ullin Office Visit 11/17/2012 4:00p [facility] Internal Medicine Lupe Rodrigez M.D. 96098 054.79 Ull[place] Office Visit 11/08/2012 3:20p [facility] Internal Medicine Lupe Rodrigez M.D. 90447 054.79 Ullin V41.3 Office Visit 10/04/2012 11:20a [facility] Internal Medicine - Lupe Rodrigez M.D. 26478 695.3 Ullin 784.0 723.1 782.0 Office Visit 08/30/2012 2:40p [facility] Internal Medicine Lupe Rodrigez M.D. 42337 784.0 Ullin 695.3 782.0 Office Visit 05/07/2012 2:20p [facility] Internal Medicine Lupe Rodrigez M.D. 43964 V70.0 Ullin 272.0 790.21 692.83 695.3 373.00 Office Visit 03/24/2012 2:40p [facility] Internal Medicine Lupe Rodrigez M.D. [id number] 300.02 Ullin 682.6 719.46 692.83 Office Visit 03/10/2012 3:20p [facility] Internal Medicine - Lupe Rodrigez M.D. 66914 682.6 Ullin 300.02 Office Visit 03/05/2012 11:20a [facility] Internal Medicine Amelia Wiggins N.P. 85127 680.9 - [place]ll[place] Office Visit 02/11/2012 2:20p [facility] Internal Medicine Lupe Rodrigez M.D. 01622 338.4 - Ullin 714.0 682.6 300.02 Office Visit 04/10/2011 2:20p [facility] Eder Francis M.D. [address] [facility] 714.0 Office Visit 02/03/2011 4:00p [facility] Services Eder Francis M.D. [address] [facility] 714.0 Plan of Care 05/07/2018 - Gonzalo Varela, NPH62.41 Otitis externa in oth diseases classd elswhr, right earComments:Use the Ciprodex as directed for 4 more days.Try to keep water out of your ears.If you get water in the ears you can use the Swimmers ear drops.If your pain returns please let me know.
[2018-05-25 18:06] VITALS: BP 128/81
--- NOTE | 2018-05-25 19:46 | ED ---
Complex/Multi-Sys Presentation - HPI Summary HPI Summary: Pt presents w/ multiple concerns. First she states she developed a red rash on her Lt cheek yesterday - this was all the way down to her chin this morning but seems better since applying topical anti-itch cream today - now just up by cheek bone. There is a component of itchiness but no burning or pain. She has 2 other red spots on her face as well that she didn't notice - both in the Rt jaw area. Upon pointing these out, she says they are also itchy. Only changes are starting doxycycline yesterday for a sinus infection (associated sx - sinus pressure, nasal congestion, PND, Rt ear pain) - she's taken this in the past w/o difficulty for acne, etc. Denies new sx of throat tightness, chest pain or SOB but does admits she's has some throat tightness and perceived SOB (feels like she can't get a deep breath ) for a while now - has been attributing this to her anxiety. These sx are not worse since starting doxycycline. H/o asthma - cannot tolerate albuterol d/t tachycardia but can tolerate xoponex - has not used recently. Has been told she may have allergies but has not identified them. Additionally, she has a h/o rosacea - it usually presents in this fashion and she uses metrogel to control it. It flairs w/ stress and temperature change, both of which she feels are factors at this time. She also has been taking flonase since her nasal congestion started a few weeks ago - feels like this makes her jittery and is causing her to have bloody noses but providers continue to tell her to "stick it out" until her sinus infection clears. She has also been taking zyrtec during the day and vistaril at night for anxiety. She also takes xanax for anxiety. Is scheduled to see her psychiatrist this Thursday for her anxiety - again this is worse since using flonase. Heat is 70+ in her home and has not been using a humidifier. Feels her chest pain is from anxiety as it has gone since she's been here and she gets this frequently with anxiety - no change in sx today. Would like ECG to be sure. - History Of Current Complaint Chief Complaint: UCRas Time Seen by Provider: 05/25/18 18:20 Hx Obtained From: Patient - Allergies/Home Medications Allergies/Adverse Reactions: Allergies Allergy/AdvReac Type Severity Reaction Status Date / Time Sulfa (Sulfonamide Allergy Severe Anaphylatic Verified 05/25/18 18:07 Antibiotics) Shock amoxicillin Allergy Intermediate Diarrhea Verified 05/25/18 18:07 erythromycin base Allergy Intermediate GI Upset Verified 05/25/18 18:07 fluoxetine Allergy Intermediate GI Upset Verified 05/25/18 18:07 progesterone Allergy Intermediate panic Verified 05/25/18 18:07 clavulanic acid Allergy Diarrhea Verified 05/25/18 18:07 STEROIDS AdvReac Severe "PUSH ME Uncoded 05/25/18 18:07 OVER THE EDGE" PMH/Surg Hx/FS Hx/Imm Hx Previously Healthy: Yes Endocrine/Hematology History: Reports: 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 Denies: Hx Chronic Obstructive Pulmonary Disease (COPD) GI History: Denies: Hx Ulcer History: Denies: Hx Dialysis, Hx Renal Disease Musculoskeletal History: Reports: Hx Fibromyalgia - better since replacing Vit D Sensory History: Reports: Hx Contacts or Glasses Denies: Hx Hearing Aid Opthamlomology History: Reports: Hx Contacts or Glasses Neurological History: Reports: Other Neuro Impairments/Disorders - vertigo Psychiatric History: Reports: Hx Anxiety, Hx Depression, Hx Panic Disorder, Hx Inpatient Treatment, Hx Community Mental Health Tx Denies: Hx Eating Disorder - Cancer History Hx Chemotherapy: No Hx Radiation Therapy: No - Surgical History Surgery Procedure, Year, and Place: 2004 hysterectomy- TOTAL HYSTERECTOMY, tonsillectomy & adenoidectomy, ear infections -tubes,mole removed left breast Hx Anesthesia Reactions: No Infectious Disease History: No Infectious Disease History: Reports: Hx Shingles Denies: Hx Hepatitis, Hx Human Immunodeficiency Virus (HIV), History Other Infectious Disease, Traveled Outside the [place] in Last 30 Days - Family History Known Family History: Positive: Hypertension, Diabetes, Other - anxiety, depression, Afib, aneurysm - Social History Occupation: Disabled Lives: With Family - mother Alcohol Use: None Hx Substance Use: No Substance Use Type: Reports: None Hx Tobacco Use: No Smoking Status (MU): Never Smoked Tobacco Review of Systems Constitutional: Negative Negative: Fever, Chills, Fatigue Positive: Ear Ache, Nasal Discharge Positive: Chest Pain Positive: Shortness Of Breath, Cough Gastrointestinal: Negative Positive: no symptoms reported Musculoskeletal: Negative Positive: Rash Neurological: Negative Positive: Anxious All Other Systems Reviewed And Are Negative: Yes Physical Exam Triage Information Reviewed: Yes Vital Signs On Initial Exam: Initial Vitals Temp Pulse Resp BP Pulse Ox 97.0 F 70 18 128/81 98 05/25/18 18:03 05/25/18 18:03 05/25/18 18:03 05/25/18 18:03 05/25/18 18:03 Vital Signs Reviewed: Yes Appearance: Positive: Well-Appearing, Well-Nourished, Pain Distress - anxious Skin: Positive: Warm, Skin Color Reflects Adequate Perfusion, Dry - Lt cheek w/ raised area of erythema which presents as erysipelas - no pustules, no vesicles , no lesions; 2 smaller areas on Rt side of face (jaw line - nickel sized) - same erythema w/ superficial edema; B/L injected capillaries on cheeks ENT: Positive: Hearing grossly normal, Pharynx normal - mild cobblestoning, Nasal congestion - Lt > Rt; mucosa edematous w/ mild erythema - no d/c, no bleeding, TMs normal - Rt TM w/ clear fluid - no retraction, Sinus tenderness, Uvula midline. Negative: TM bulging, TM dull, TM red, Tonsillar swelling, Tonsillar exudate, Trismus, Muffled voice, Hoarse voice, Dental tenderness Neck: Positive: Supple, No Lymphadenopathy, Tenderness @ Respiratory/Lung Sounds: Positive: Clear to Auscultation, Breath Sounds Present. Negative: Rales, Rhonchi, Wheezes Cardiovascular: Positive: Normal, RRR, S1, S2. Negative: Murmur, Rub, Leg Edema Left, Leg Edema Right Abdomen Description: Positive: Nontender, No Organomegaly, Soft Bowel Sounds: Positive: Present Musculoskeletal: Positive: Normal, Strength/ROM Intact Neurological: Positive: Normal, Sensory/Motor Intact, Alert, Oriented to Person Place, Time, CN Intact II-III Psychiatric: Positive: Anxious Diagnostics - Vital Signs Vital Signs Temp Pulse Resp BP Pulse Ox 05/25/18 18:03 97.0 F 70 18 128/81 98 - Laboratory Lab Statement: Any lab studies that have been ordered have been reviewed, and results considered in the medical decision making process. Complex Multi-Symp Course/Dx Course Of Treatment: CXR: no acute findings. ECG: NSR, no ST elevations, no blocks. Practiced deep diaphragm breathing with the pt and she reports it helped. Also feels better knowing her CXR and ECG are normal - sx of CP and SOB have resolved. After much discussion, suspect steroids are triggering aggravation of her perceived SOB and anxiety. She will stop flonase and may/may not stop doxycycline. SHe will replace flonase with saline nasal spray, turn heat down, use humidifier and continue anti-histamines. She will apply ice only to her face and again avoid steroids topicals which may make her anxiety worse. This may be rosacea exacerbation vs. allergic rxn. Encouraged cessation of newest meds to see if she improves. Since she has also had h/o asthma related to allergies, will send xoponex to pharmacy. If her perceived SOB improves w/ cessation of steroids, she does not need to use this. F/u w/ Gonzalo Varela. If danger s/sx present, she agrees to go to ED. - Diagnoses Provider Diagnoses: Facial rash, Chest pain, Shortness of breath, Anxiety Discharge - Sign-Out/Discharge Documenting (check all that apply): Patient Departure All imaging exams completed and their final reports reviewed: Yes - Discharge Plan Condition: Stable Disposition: HOME Prescriptions: Levalbuterol HFA INHALER* [Xopenex Hfa Inhaler*] 2 puff INH Q6H PRN #1 mdi PRN Reason: Shortness Of Breath Referrals: Gonzalo Varela, CENTERLESS GRINDING MACHINE ADJUSTER [Primary Care Provider] - Additional Instructions: Your chest XR and ECG are normal today. You do not appear to have acute issues with your heart or lungs but if your symptoms of chest pain return, go to the emergency department. We practiced deep diaphragm breathing with closed lips tonight (breathing through nose) which seemed to help - continue to do this throughout the day - 10 deep breathes 3 x day. We also discussed that steroids are most likely triggering your sensation of shortness of breath and anxiety. Stop flonase and refrain from using topical steroid anti-itch creams. Note how you feel and report to psychiatrist this Thursday. If you would like to try xoponex, an inhaler has been sent to your pharmacy as you have reported a history of asthma and this may help. If it does not help or you feel worse, go to the emergency department. For the rash on your face, you may apply ice, continue your zyrtec and vistaril and avoid steroids (inhaled and topical). The definitive cause was not identified tonight but we discussed the possibility of it being from stress/ inflammation triggering your rosacea, allergic reaction to unknown substance but possibly doxycycline or inflammation from your still healing sinus infection. It is important that you follow-up with Gonzalo Varela in the next couple of days to reasses after making the changes we reviewed. You may also turn your heat down to at least 68F and use a humidifier to reduce nasal irritation. Stay hydrated. Use saline nasal sprays and salt water gargles to reduce ear pressure/pain. *If rash on face worsens and/or you develop headache, eye pain, neck stiffness, difficulty swallowing or breathing, go to the emergency department. - Billing Disposition and Condition Condition: STABLE Disposition: Home - Attestation Statements Provider Attestation: I was available for consult. This patient was seen by the [facility]. The patient was not presented to, seen by, or examined by me. -Teresa
--- NOTE | 2018-05-25 20:37 | ED ---
Course/Dx - Course Course Of Treatment: CXR: no acute findings. ECG: NSR, no ST elevations, no blocks. Practiced deep diaphragm breathing with the pt and she reports it helped. Also feels better knowing her CXR and ECG are normal - sx of CP and SOB have resolved. After much discussion, suspect steroids are triggering aggravation of her perceived SOB and anxiety. She will stop flonase and may/may not stop doxycycline. SHe will replace flonase with saline nasal spray, turn heat down, use humidifier and continue anti-histamines. She will apply ice only to her face and again avoid steroids topicals which may make her anxiety worse. This may be rosacea exacerbation vs. allergic rxn. Encouraged cessation of newest meds to see if she improves. Since she has also had h/o asthma related to allergies, will send xoponex to pharmacy. If her perceived SOB improves w/ cessation of steroids, she does not need to use this. F/u w/ Gonzalo Varela. If danger s/sx present, she agrees to go to ED. - Diagnoses Provider Diagnoses: Facial rash, Chest pain, Shortness of breath, Anxiety Discharge - Sign-Out/Discharge Documenting (check all that apply): Post-Discharge Follow Up All imaging exams completed and their final reports reviewed: No - Discharge Plan Condition: Stable Disposition: HOME Prescriptions: Levalbuterol HFA INHALER* [Xopenex Hfa Inhaler*] 2 puff INH Q6H PRN #1 mdi PRN Reason: Shortness Of Breath Referrals: Gonzalo Varela, OPTICAL INSTRUMENT ASSEMBLER [Primary Care Provider] - Additional Instructions: Your chest XR and ECG are normal today. You do not appear to have acute issues with your heart or lungs but if your symptoms of chest pain return, go to the emergency department. We practiced deep diaphragm breathing with closed lips tonight (breathing through nose) which seemed to help - continue to do this throughout the day - 10 deep breathes 3 x day. We also discussed that steroids are most likely triggering your sensation of shortness of breath and anxiety. Stop flonase and refrain from using topical steroid anti-itch creams. Note how you feel and report to psychiatrist this Thursday. If you would like to try xoponex, an inhaler has been sent to your pharmacy as you have reported a history of asthma and this may help. If it does not help or you feel worse, go to the emergency department. For the rash on your face, you may apply ice, continue your zyrtec and vistaril and avoid steroids (inhaled and topical). The definitive cause was not identified tonight but we discussed the possibility of it being from stress/ inflammation triggering your rosacea, allergic reaction to unknown substance but possibly doxycycline or inflammation from your still healing sinus infection. It is important that you follow-up with Gonzalo Varela in the next couple of days to reasses after making the changes we reviewed. You may also turn your heat down to at least 68F and use a humidifier to reduce nasal irritation. Stay hydrated. Use saline nasal sprays and salt water gargles to reduce ear pressure/pain. *If rash on face worsens and/or you develop headache, eye pain, neck stiffness, difficulty swallowing or breathing, go to the emergency department. - Billing Disposition and Condition Condition: STABLE Disposition: Home - Attestation Statements Provider Attestation: I was available for consult. This patient was seen by the [facility]. The patient was not presented to, seen by, or examined by me. -Teresa
--- NOTE | 2018-05-26 07:54 | RAD ---
Indication: Shortness of breath, chest pain. 2 views of the chest including dual energy PA views are reviewed. No mediastinal shift. Heart is of normal size and configuration. Lung marr show no pleural fluid, pneumonia or pneumothorax. IMPRESSION: No active cardiopulmonary disease is noted. R0
--- NOTE | 2018-05-26 09:59 | UC ---
- Progress Note Progress Note: RADIOLOGY REPORT REVIEWED. CXR UNREMARKABLE. NO CHANGE IN MGMT. Course/Dx - Diagnoses Provider Diagnoses: Facial rash, Chest pain, Shortness of breath, Anxiety Discharge - Sign-Out/Discharge Documenting (check all that apply): Post-Discharge Follow Up All imaging exams completed and their final reports reviewed: Yes - Discharge Plan Condition: Stable Disposition: HOME Prescriptions: Levalbuterol HFA INHALER* [Xopenex Hfa Inhaler*] 2 puff INH Q6H PRN #1 mdi PRN Reason: Shortness Of Breath Referrals: Gonzalo Varela, TRUCK RENTAL MANAGER [Primary Care Provider] - Additional Instructions: Your chest XR and ECG are normal today. You do not appear to have acute issues with your heart or lungs but if your symptoms of chest pain return, go to the emergency department. We practiced deep diaphragm breathing with closed lips tonight (breathing through nose) which seemed to help - continue to do this throughout the day - 10 deep breathes 3 x day. We also discussed that steroids are most likely triggering your sensation of shortness of breath and anxiety. Stop flonase and refrain from using topical steroid anti-itch creams. Note how you feel and report to psychiatrist this Thursday. If you would like to try xoponex, an inhaler has been sent to your pharmacy as you have reported a history of asthma and this may help. If it does not help or you feel worse, go to the emergency department. For the rash on your face, you may apply ice, continue your zyrtec and vistaril and avoid steroids (inhaled and topical). The definitive cause was not identified tonight but we discussed the possibility of it being from stress/ inflammation triggering your rosacea, allergic reaction to unknown substance but possibly doxycycline or inflammation from your still healing sinus infection. It is important that you follow-up with Gonzalo Varela in the next couple of days to reasses after making the changes we reviewed. You may also turn your heat down to at least 68F and use a humidifier to reduce nasal irritation. Stay hydrated. Use saline nasal sprays and salt water gargles to reduce ear pressure/pain. *If rash on face worsens and/or you develop headache, eye pain, neck stiffness, difficulty swallowing or breathing, go to the emergency department. - Billing Disposition and Condition Condition: STABLE Disposition: Home
== END 2018-05-25 20:27 | disposition home or self-care (01) ==
LOC: UCEAST 17:58
DX: R21 Rash and other nonspecific skin eruption (principal); R07.9 Chest pain, unspecified; R06.02 Shortness of breath; F41.9 Anxiety disorder, unspecified; Z79.899 Other long term (current) drug therapy; Z88.2 Allergy status to sulfonamides; Z88.0 Allergy status to penicillin; Z88.1 Allergy status to other antibiotic agents; Z88.8 Allergy status to other drugs, medicaments and biological substances
CPT/HCPCS: 71046; 93005; 99212; G0463

== ENCOUNTER 2018-11-06 21:58 | Emergency (ER) | payer MEDICARE ==
[2018-11-06] MEDS ORDERED: Famotidine TAB* 20 MG PO ONE (23:52)
[2018-11-06] MEDS ORDERED: diPHENhydraMINE PO* 50 MG PO ONE (23:52)
--- NOTE | 2018-11-07 00:13 | ED ---
Allergic Reaction/Systemic - HPI Summary HPI Summary: 53 year old female presents with a rash today. States that she took doxycycline for sinusitis. She is also sitting in the car and was sitting in the sun. States that the rash is itchy. States that she had some shortness breath that attributed to anxiety so she took some Ativan which symptoms resolved. She states she was taking doxycycline for sinus infection. She has a sinus infection for the past 2 weeks. Has history of sinus infection. States she's had this reaction before when she's had doxycycline. - History of Current Complaint Chief Complaint: EDAllergicReaction Time Seen by Provider: 11/06/18 23:43 Pain Intensity: 9 - Allergies/Home Medications Allergies/Adverse Reactions: Allergies Allergy/AdvReac Type Severity Reaction Status Date / Time Sulfa (Sulfonamide Allergy Severe Anaphylatic Verified 11/06/18 22:03 Antibiotics) Shock amoxicillin Allergy Intermediate Diarrhea Verified 11/06/18 22:03 erythromycin base Allergy Intermediate GI Upset Verified 11/06/18 22:03 fluoxetine Allergy Intermediate GI Upset Verified 11/06/18 22:03 progesterone Allergy Intermediate panic Verified 11/06/18 22:03 clavulanic acid Allergy Diarrhea Verified 11/06/18 22:03 STEROIDS AdvReac Severe "PUSH ME Uncoded 11/06/18 22:03 OVER THE EDGE" PMH/Surg Hx/FS Hx/Imm Hx Endocrine/Hematology History: Denies: Hx Diabetes, Hx Thyroid Disease Cardiovascular History: Denies: Hx Hypertension, Hx Pacemaker/ICD Respiratory History: Reports: Hx Asthma - ALLERGY RELATED? Denies: Hx Chronic Obstructive Pulmonary Disease (COPD) GI History: Denies: Hx Ulcer History: Denies: Hx Dialysis, Hx Renal Disease Musculoskeletal History: Reports: Hx Fibromyalgia - better since replacing Vit D Sensory History: Reports: Hx Contacts or Glasses Denies: Hx Hearing Aid Opthamlomology History: Reports: Hx Contacts or Glasses Neurological History: Reports: Other Neuro Impairments/Disorders - vertigo Psychiatric History: Reports: Hx Anxiety, Hx Depression, Hx Panic Disorder, Hx Inpatient Treatment, Hx Community Mental Health Tx Denies: Hx Eating Disorder - Cancer History Hx Chemotherapy: No Hx Radiation Therapy: No - Surgical History Surgery Procedure, Year, and Place: 2004 hysterectomy- TOTAL HYSTERECTOMY, tonsillectomy & adenoidectomy, ear infections -tubes,mole removed left breast Hx Anesthesia Reactions: No Infectious Disease History: No Infectious Disease History: Reports: Hx Shingles Denies: Hx Hepatitis, Hx Human Immunodeficiency Virus (HIV), History Other Infectious Disease, Traveled Outside the [place] in Last 30 Days - Family History Known Family History: Positive: Hypertension, Diabetes, Other - anxiety, depression, Afib, aneurysm - Social History Alcohol Use: None Hx Substance Use: No Substance Use Type: Reports: None Hx Tobacco Use: No Smoking Status (MU): Never Smoked Tobacco Review of Systems Negative: Fever Negative: Chest Pain Negative: Shortness Of Breath Positive: Rash All Other Systems Reviewed And Are Negative: Yes Physical Exam Triage Information Reviewed: Yes Vital Signs On Initial Exam: Initial Vitals Temp Pulse Resp BP Pulse Ox 99.1 F 87 16 126/82 95 11/06/18 22:01 11/06/18 22:01 11/06/18 22:01 11/06/18 22:01 11/06/18 22:01 Vital Signs Reviewed: Yes Appearance: Positive: Well-Appearing Skin: Positive: Warm, Dry, Other - erythema to under left check and right jaw Head/Face: Positive: Normal Head/Face Inspection Eyes: Positive: Normal, EOMI, AIDA, Conjunctiva Clear ENT: Positive: Normal ENT inspection, Pharynx normal, TMs normal Respiratory/Lung Sounds: Positive: Clear to Auscultation, Breath Sounds Present Cardiovascular: Positive: Normal, RRR Abdomen Description: Positive: Nontender, Soft Bowel Sounds: Positive: Present Musculoskeletal: Positive: Normal Neurological: Positive: Normal Psychiatric: Positive: Normal Diagnostics - Vital Signs Vital Signs Temp Pulse Resp BP Pulse Ox 11/06/18 22:01 99.1 F 87 16 126/82 95 - Laboratory Lab Statement: Any lab studies that have been ordered have been reviewed, and results considered in the medical decision making process. Re-Evaluation - Re-Evaluation First Eval Re-Evaluation Time: 01:02 Allergic Reaction Course/Dx - Course Course Of Treatment: 53 year old female presents with a rash today. States that she took doxycycline for sinusitis. She is also sitting in the car and was sitting in the sun. States that the rash is itchy. States that she had some shortness breath that attributed to anxiety so she took some Ativan which symptoms resolved. She states she was taking doxycycline for sinus infection. She has a sinus infection for the past 2 weeks. Has history of sinus infection. States she's had this reaction before when she's had doxycycline. On exam has circular rash to left cheek and right jaw. gave benadryl and pepcid. Rash though on the cheek appears that could also related to sun exposure with the doxycycline. We will treat at this time as allergic reaction. Patient declined steroid. We'll treat with Benadryl and Pepcid. Will prescribe Levaquin for sinusitis. Patient understands agrees with plan. - Diagnoses Differential Diagnosis/HQI/PQRI: Positive: Anaphylaxis, Local Allergic Reaction , Urticaria Provider Diagnoses: Rash Discharge - Sign-Out/Discharge Documenting (check all that apply): Patient Departure Patient Received Moderate/Deep Sedation with Procedure: No - Discharge Plan Condition: Good Disposition: HOME Prescriptions: Levofloxacin TAB* [Levaquin TAB*] 500 mg PO DAILY #7 tab Patient Education Materials: General Allergic Reaction (ED) Referrals: Gonzalo Varela, CLOCK MAKER [Primary Care Provider] - Additional Instructions: Take Benadryl every 6 hours take pepcid twice a day for 4 days Follow up with primary Take levaquin once a day for 7 days Return to ED if develop any new or worsening symptoms - Billing Disposition and Condition Condition: GOOD Disposition: Home
[2018-11-07 01:05] VITALS: BP 113/82
== END 2018-11-07 02:05 | disposition home or self-care (01) ==
LOC: ED 21:58
DX: R21 Rash and other nonspecific skin eruption (principal); Z88.2 Allergy status to sulfonamides; Z88.3 Allergy status to other anti-infective agents; Z88.8 Allergy status to other drugs, medicaments and biological substances; J45.909 Unspecified asthma, uncomplicated
CPT/HCPCS: 99283; A9270-GY

== ENCOUNTER 2019-06-05 16:39 | Emergency (ER) | payer MEDICARE ==
--- OUTSIDE RECORDS SUMMARY | 2019-06-05 16:45 | XMS REPORT | Continuity of Care Document ---
:1965 External Reference #:[id number] Author Name Justus Mckeon MD Address [address] [place] [address] Care Team Providers Name Role Phone Marisela Wolff MD - Pulmonary Care Team Information Aquatic Facility Manager Disease Gonzalo Varela, HANGERSMITH-C Care Team Information Aquatic Facility Manager Unavailable Problems Active Problems Provider Date Chronic pain syndrome Onset: 02/11/2012 Generalized anxiety disorder Onset: 02/11/2012 Impaired fasting glycaemia Onset: 05/07/2012 Rosacea Onset: 08/30/2012 Uncomplicated moderate persistent asthma Justus Mckeon MD Onset: Allergic rhinitis Justus Mckeon MD Onset: 05/13/2019 Allergic rhinitis due to pollen Justus Mckeon MD Onset: 05/13/2019 Social History Type Date Description Comments Sex Unknown Tobacco Use Start: Unknown Patient has never smoked Smoking Status Reviewed: 05/13/19 Patient has never smoked Allergies, Adverse Reactions, Alerts Active Allergies Reaction Severity Comments Date Sulfamethoxazole / 05/03/2019 Trimethoprim Fluconazole Urticaria Severe 05/03/2019 Only when she takes it with xanax Doxycycline Abdominal pain, Severe 05/03/2019 Diarrhea, Difficulty breathing, Facial swelling, Flushing, Hives, Swelling of eyelid Erythromycin 05/03/2019 Noritate burning blistering 05/03/2019 rash Paroxetine 05/03/2019 Prednisone 05/03/2019 Progesterone 05/03/2019 Fluoxetine 05/03/2019 Inactive Allergies Amoxicillin severe diarrhea 05/03/2019 Medications Active Medications SIG Qnty Indications Ordering Provider Date Nasonex 2 intranasal 1units J30.1 Justus Kay 05/13/2019 50mcg/Act puffs every day MD Mike Suspension Xyzal 1 tab by mouth 30tabs J30.1 Justus Kay 05/13/2019 5mg Tablets every day as MD Mike needed Levalbuterol 1 puff 2-3 times 15units J45.909 Marisela Wolff, 04/27/2019 Tartrate daily as needed 45mcg/Act for sob Aerosol Lotrisone apply externally 15units L29.0 Amelia Wiggins NP 08/09/2018 1-0.05% tid prn Cream Metrogel apply twice daily 60units L71.8 Gonzalo Varela, 12/11/2017 1% Gel as directed HANGERSMITH-C (please give in tube , not pump) Valacyclovir HCL 1 tablet twice 20tabs Gonzalo Varela, 10/12/2017 daily for 10 days HANGERSMITH-C 1gm Tablets prn KP Vitamin D3 one tablet daily 90caps Gonzalo Varela, 08/11/2017 50mcg HANGERSMITH-C (2000 Ut) Capsules Fluticasone Instill 1 [place] 16units H93.93 Gonzalo Varela, 10/09/2015 Propionate Into Each Nostril HANGERSMITH-C Once Daily as 50mcg/Act Needed Suspension Zyrtec Allergy 1 by mouth twice 180caps Gonzalo Varela, 02/20/2015 10mg a day HANGERSMITH-C Capsules Xanax one by mouth up 20tabs Unknown 0.25mg to four times Tablets daily as needed for anxiety Menostar q6days Unknown 14mcg/24HR Patches Weekly Vistaril 1-2 times daily Unknown 25mg as needed Capsules [facility] O[facility] Shell Unknown Calcium +Vitamin D [id number] Tablets Meclizine HCL 1 by mouth three 90tabs Gonzalo Varela, times a day as HANGERSMITH-C 12.5mg Tablets needed Ibuprofen 200 400-600mg every 6 Unknown 200mg hours as needed Tablets for pain. Immunizations CPT Code Status Date Vaccine Lot # [id number] Given 03/21/2016 Influenza Virus Split 3 Yrs And Above For Intramuscular Use 60997 Given 08/28/2014 Tetanus, Diphtheria Toxoids/Acellular Pertussis Vaccine 7 Or > Vital Signs Date Vital Result Comment 05/13/2019 3:44pm Height 67.5 inches 5'7.50" Weight 164.12 lb BMI (Body Mass Index) 25.3 kg/m2 04/27/2019 10:39am Height 67.5 inches Weight 166.00 lb BMI (Body Mass Index) 25.6 kg/m2 Heart Rate 78 /min O2 % BldC Oximetry 98 % Results Test Date Facility Test Result H/L Range Note Laboratory test 05/13/2019 [facility] ...Rast <pending> finding [address] [facility] [place] [address] [phone] Ige Total <pending> .CBC Auto Diff 05/13/2019 [facility] Z#Other <pending> [address] [facility] [place] [address] [phone] Lab Results 04/21/2019 N2N/CCD Import Cytology See Result 1 Below Urinalysis 01/06/2019 N2N/CCD Import Urine Color Yellow Profile Urine Appearance Clear Urine Specific [place] 1.006 1 Low 1.010-1.030 Urine pH 8.0 1 5-9 Urine Urobilinogen Negative Urine Ketones Negative Urine Protein Negative Urine Leukocytes 3+ Abnormal Urine Blood Negative * * Abnormal 2 Urine Nitrite Negative Urine Bilirubin Negative Urine Glucose Negative Urine White Blood Cell 3+(>20/hpf) Abnormal Urine Red Blood Cell 2+(6-10/hpf) Abnormal Urine Bacteria 1+ Abnormal Urine Squamous Epithelial Cell Present Abnormal Urine Culture And 01/06/2019 N2N/CCD Import Urine Culture See Result Below 3 Sensitivities 1 SEE RESULT BELOW Name: SIXTO CLEMONS : [address]: Jorge Vila MD Acct: [id number] Unit: [id number] AGE: 54 Location: [facility] Re04/21/19 SEX: F Status: REG REF SPEC: [id number] SCOTTY: 04/21/19-154 [facility] DR: Jorge Vila MD REQ: [id number] RECD: 04/22/19-1236 STATUS: SANDRA TRACY DR: Edith Saldivar MD _ ORDERED: TP IMAGE ANALYS, HPV/Thin Prep FINAL DIAGNOSIS Negative for Intraepithelial lesion or Malignancy HPV RESULTS Date Time Test Result Flag (u) Normal Range 04/21/19 1542 HPV LAWANDA Negative Negative The high-risk HPV types detected by the assay include: 16, 18, 31, 33, 35, 39, 45, 51, 52, 56, 58, 59, 66, and 68. SPECIMEN(S) RECEIVED A. Ectocervical/Endocervical CYTOLOGY ADEQUACY Specimen Adequacy: Satisfactory of evaluation Transformation zone component identified CYTOLOGY PATIENT INFORMATION Patient Information: HPV: High risk HPV RNA testing regardless of pap results. Actual Specimen Date: 04/21/19 LMP If Unknown: 2004 Date of Last Specimen: 02/25/17 Signed by and Reported on: BRENDEN Bai (ASCP) 1521 This Pap test was evaluated with the assistance of the [employer] Test Imaging System. Due to cytologic findings at the reservoir engineering consultant microscope, comprehensive manual rescreening by a Aniline Press Worker may be required. The Pap Smear is a screening test designed to aid in the detection of premalignant and malignant conditions of the uterine cervix. It is not a diagnostic procedure and should not be used as the sole means of detecting cervical cancer. Both false- positive and false- negative reports do occur. Depending on your risk status, a Pap smear should be obtained and evaluated every 1-3 years. CONTINUED ON NEXT PAGE DEPARTMENT OF PATHOLOGY, [address] [place] [address] Gene Mcknight M.D. Director [facility] # [id number] 2 *Ascorbic acid is present which may interfere with detection of blood. 3 SEE RESULT BELOW Name: SIXTO CLEMONS Zeus : [address]: Gonzalo Varela NP Acct: [id number] Unit: [id number] AGE: 53 Location: LAB Re01/06/19 SEX: F Status: REG REF SPEC: [id number] SCOTTY: 01/06/19-[address]: Gonzalo Varela NP REQ: [id number] RECD: 01/06/19-3298 STATUS: COMP _ SOURCE: URINE [facility]: ORDERED: Urine Culture Procedure Result Reported Site Urine Culture Final 01/08/19- 0909 ML Organism 1 ESCHERICHIA COLI [place] Count 50-75,000 (Many) CFU/ML 1. ESCHERICHIA COLI [facility] RX --------- ------ Ampicillin <=2 S Cefazolin <=4 S Cefepime <=1 S Ceftriaxone <=1 S Ciprofloxacin <=0.25 S Gentamicin <=1 S Levofloxacin <=0.12 S Meropenem <=0.25 S Nitrofurantoin <=16 S Tetracycline <=1 S Pipercillin/Tazobactam <=4 S Trimethoprim/Sulfamethoxazole <=20 S Amoxicillin/Clavulanic Acid <=2 S Aztreonam <=1 S Contact the Microbiology Department for any additional antibiotic reporting. * ML - Main Lab . END OF REPORT DEPARTMENT OF PATHOLOGY, [address] [place] [address] Gene Mcknight M.D. Director [facility] # [id number] Procedures Description No Information Available Medical Devices Description No Information Available Encounters Description No Information Available Assessments Date Code Description Provider 05/13/2019 J30.1 Allergic rhinitis due to pollen Justus Mckeon MD 05/13/2019 J30.89 Other allergic rhinitis Justus Mckeon MD 05/13/2019 J45.40 Moderate persistent asthma, uncomplicated Justus Mckeon MD Plan of Treatment 05/13/2019 - Justus Mckeon MDJ30.1 Allergic rhinitis due to pollenNew Medication:Nasonex 50 mcg/Act - 2 intranasal puffs every dayXyzal 5 mg - 1 tab by mouth every day as bmbbezB39.89 Other allergic myvmpfwlG87.40 Moderate persistent asthma, uncomplicated Functional Status Description No Information Available Mental Status Description No Information Available Referrals Description No Information Available
--- OUTSIDE RECORDS SUMMARY | 2019-06-05 16:45 | XMS REPORT | Continuity of Care Document ---
:1965 External Reference #:[id number] Author Name Nata Mendes PA-C (transmitted by agent of provider Carmen Pat) Address [address] [place] [address] Care Team Providers Name Role Phone Gonzalo Varela NP - Nurse Practitioner Care Team Information Manufacturing Engineering Manager Jorge Vila M.D. - Obstetrics & Care Team Information Manufacturing Engineering Manager Gynecology Cale Tsang M.D. - Psychiatry Care Team Information Manufacturing Engineering Manager Problems Active Problems Provider Date Asthma without status asthmaticus Tasha Peterson TRACK WATCHMAN Onset: 04/24/2011 Allergic rhinitis Tasha Peterson TRACK WATCHMAN Onset: 04/24/2011 Peripheral vertigo Aidan Ruiz MD Onset: 04/24/2011 Dysfunction of eustachian tube Aidan Ruiz MD Onset: 04/24/2011 Sensorineural hearing loss Aidan Ruiz MD Onset: 04/24/2011 Other specified disorders of Eustachian tube, Aidan Ruiz MD Onset: bilateral Otalgia Nata Mendes PA-C Onset: 05/19/2018 Sensorineural hearing loss, bilateral Nata Mendes PA-C Onset: 05/19/2018 Social History Type Date Description Comments Sex Unknown Tobacco Use Start: Unknown Never Smoked Cigarettes Smoking Status Reviewed: 03/08/19 Never Smoked Cigarettes Tobacco Use Start: Unknown End: Unknown current.no Tobacco Use Start: Unknown End: Unknown current.no Smokeless Tobacco current.no ETOH Use Does not drink alcohol Tobacco Use Start: Unknown Patient has never smoked Allergies, Adverse Reactions, Alerts Active Allergies Reaction Severity Comments Date Bactrim 12/04/2006 Sulfa 12/04/2006 Erythromycin 12/04/2006 Effexor 12/04/2006 Prozac 12/04/2006 Noritate rash/cysts 11/30/2017 Zithromax stomach issues 11/30/2017 Paxil 11/30/2017 steroids panic 11/30/2017 Medications Active Medications SIG Qnty Indications Ordering Date Provider Valacyclovir HCL 1 tablet once 30tabs Nichole TRACK WATCHMAN, Gonzalo 10/12/2017 1gm daily Tablets KP Vitamin D3 one tablet daily 30caps Nichole TRACK WATCHMAN, Gonzalo 08/11/2017 2000Unit Capsules Fluticasone 1 spray each 16units H93.93 Nichole TRACK WATCHMAN, Gonzalo 10/09/2015 Propionate nostril daily as 50mcg/Act needed Suspension Meclizine HCL 1 PO tid as 60tabs Aidan Manrique 01/02/2009 25mg Needed For MD Joseph Tablets Dizziness Xanax prn Unknown 12/03/2006 0.25mg Tablets Hydroxyzine Pamoate Unknown 25mg Capsules Ofloxacin (Otic) Nichole TRACK WATCHMAN, Gonzalo 0.3% Solution Magnesium as directed Unknown 500mg Tablets Calcium 500 +D as directed Unknown [id number] Tablets Vitamin C daily Unknown 500mg Chewtabs Vitamin B-12 as directed Unknown Tablets Vitamin B6 as directed Unknown 25mg Tablets Tylenol Arthritis as needed Unknown Pain 650mg Tablets ER Motrin Ib 200-600MG prn Unknown 200mg Tablets Menostar Apply 1 Patch Unknown 14mcg/24HR Every 6 Days Patches Weekly Zyrtec Allergy 1 by mouth every Unknown 10mg day Tablets Vistaril 1-2 daily Unknown 25mg Capsules Metrogel Unknown Sudafed Unknown Immunizations Description No Information Available Vital Signs Date Vital Result Comment 03/08/2019 3:34pm Weight 165.00 lb Weight 74.844 kg Height 68 inches 5'8" Height in cm's 172.7 cm BMI (Body Mass Index) 25.1 kg/m2 05/19/2018 2:42pm Weight 161.00 lb Weight 73.030 kg Height 68 inches 5'8" Height in cm's 172.7 cm BMI (Body Mass Index) 24.5 kg/m2 Results Description No Information Available Procedures Description No Information Available Medical Devices Description No Information Available Encounters Type Date Location Provider Dx Diagnosis Office Visit 03/08/2019 [place],Muna Manrique H69.83 Other specified 3:15p 07/27/07 MD Joseph disorders of Eustachian tube, bilateral J30.2 Other seasonal allergic rhinitis F41.9 Anxiety disorder, unspecified Assessments Date Code Description Provider 03/08/2019 H69.83 Other specified disorders of Eustachian tube, Aidan Ruiz MD bilateral 03/08/2019 J30.2 Other seasonal allergic rhinitis Aidan Ruiz MD 03/08/2019 F41.9 Anxiety disorder, unspecified Aidan Ruiz MD Plan of Treatment No Information Available Functional Status Description No Information Available Mental Status Description No Information Available Referrals Description No Information Available
--- OUTSIDE RECORDS SUMMARY | 2019-06-05 16:45 | XMS REPORT | Continuity of Care Document ---
:1965 External Reference #:[id number] Author Name Marisela Wolff MD (transmitted by agent of provider Radha Cheatham) Address [address], [address] [place] [address] Care Team Providers Name Role Phone Cale Tsang MD - Psychiatry Care Team Information Agent Producer Guy Whiting M.D. - Care Team Information Agent Producer [phone] Rheumatology Inna Olea MD - Dermatology Care Team Information Agent Producer [phone] Nahun Sheppard MD - Ophthalmology Care Team Information Agent Producer Jorge Vila MD - Obstetrics & Care Team Information Agent Producer Gynecology Aidan Ruiz MD - Otolaryngology Care Team Information Agent Producer [phone] Edith Saldivar MD - Internal Care Team Information Agent Producer [phone] Medicine Problems Active Problems Provider Date Chronic pain syndrome Lupe Rodrigez M.D. Onset: 02/11/2012 Generalized anxiety disorder Lupe Rodrigez M.D. Onset: 02/11/2012 Impaired fasting glycaemia Lupe Rodrigez M.D. Onset: 05/07/2012 Rosacea Lupe Rodrigez M.D. Onset: 08/30/2012 Myalgia & Myositis Unspecified Lupe Rodrigez M.D. Onset: 05/11/2013 Social History Type Date Description Comments Sex Unknown ETOH Use Denies alcohol use Tobacco Use Start: Unknown Patient has never smoked Recreational Drug Use Denies Drug Use Smoking Status Reviewed: 04/27/19 Patient has never smoked Exercise Type/Frequency Exercises sporadically Allergies, Adverse Reactions, Alerts Active Allergies Reaction Severity Comments Date Bactrim 02/03/2011 Erythromycin 02/03/2011 Paxil 02/03/2011 Prozac 02/03/2011 Progesterone 02/03/2011 Prednisone 02/03/2011 Diflucan Urticaria Severe Only when she takes it 08/07/2016 with xanax Noritate burning blistering rash 11/21/2017 Doxycycline Abdominal pain, Diarrhea, Severe 04/07/2019 Difficulty breathing, Facial swelling, Flushing, Hives, Swelling of eyelid Inactive Allergies Augmentin severe diarrhea 10/19/2013 Medications Active Medications SIG Qnty Indications Ordering Date Provider Levalbuterol 1 puff 2-3 times 15gm J45.909 Mariselajaspreet Wolff, 04/27/2019 Tartrate daily as needed 45mcg/Act for sob Aerosol Lotrisone apply externally 15units L29.0 Amelia Wiggins, 08/09/2018 1-0.05% tid prn N.P. Cream Metrogel apply twice daily 60units L71.8 Gonzalo Varela NP 12/11/2017 1% Gel as directed (please give in tube , not pump) Valacyclovir HCL 1 tablet twice 20tabs Gonzalo Varela NP 10/12/2017 1gm daily for 10 days Tablets prn KP Vitamin D3 one tablet daily 90caps Gonzalo Varela NP 08/11/2017 2000Unit Capsules Fluticasone Instill 1 [place] 16units H93.93 Gonzalo Varela NP 10/09/2015 Propionate Into Each Nostril 50mcg/Act Once Daily as Suspension Needed Zyrtec Allergy 1 by mouth twice a 180caps Gonzalo Varela NP 02/20/2015 10mg day Capsules Ibuprofen 200 400-600mg every 6 Unknown 200mg hours as needed Tablets for pain. Meclizine HCL 1 by mouth three 90tabs Gonzalo Varela NP 12.5mg times a day as Tablets needed Vitamin C 1 tab by mouth Unknown 500mg twice a day take Chewtabs with iron Calcium Unknown [id number] Tablets Magnesium Oxide 2 x per day by Unknown 300mg mouth every day Tablets Vistaril 1-2 times daily Unknown 25mg as needed Capsules Menostar q6days Unknown 14mcg/24HR Patches Weekly Xanax one by mouth up to 20tabs Unknown 0.25mg Tablets four times daily as needed for anxiety History Medications Doxycycline Hyclate one tablet 20caps J01.90 Gonzalo Varela NP 04/05/2019 - 100mg twice daily 04/07/2019 Capsules for 10 days. Cefpodoxime Proxetil One po bid x 20tabs J01.90 Amelia Wiggins, 02/15/2019 - 200mg 10 days N.P. 02/25/2019 Tablets Nitrofurantoin Monohyd take one 10caps Katherin Oviedo MD 01/09/2019 - Macro tablet every 02/15/2019 100mg Capsules 12 hours Immunizations CPT Code Status Date Vaccine Lot # [id number] Given 03/21/2016 Flu Vaccine NOS [id number] Given 08/28/2014 Tdap - Tetanus/Diptheria/Acellular Pertussis [id number] Vital Signs Date Vital Result Comment 04/27/2019 10:39am Height 67.5 inches 5'7.50" Weight 166.00 lb Heart Rate 78 /min BP Systolic Sitting 120 mmHg BP Diastolic Sitting 60 mmHg O2 % BldC Oximetry 98 % BMI (Body Mass Index) 25.6 kg/m2 04/05/2019 10:15am Height 67.5 inches 5'7.50" Weight 162.00 lb Heart Rate 88 /min BP Systolic 113 mmHg BP Diastolic 78 mmHg Body Temperature 98.8 F O2 % BldC Oximetry 98 % BMI (Body Mass Index) 25.0 kg/m2 Results Test Date Facility Test Result H/L Range Note Laboratory test 04/21/2019 [facility] Cytology SEE RESULT [address] [place] [address] [phone] Urinalysis Profile 01/06/2019 [facility] Urine Color Yellow [address] [place] [address] [phone] Urine Appearance Clear Urine Specific [place] 1.006 Low 1.010-1.030 Urine pH 8.0 Normal 5-9 Urine Urobilinogen Negative Negative Urine Ketones Negative Negative Urine Protein Negative Negative Urine Leukocytes 3+ Abnormal Negative Urine Blood Negative Negative * * Abnormal Negative 2 Urine Nitrite Negative Negative Urine Bilirubin Negative Negative Urine Glucose Negative Negative Urine White Blood Cell 3+(>20/hpf) Abnormal Absent Urine Red Blood Cell 2+(6-10/hpf) Abnormal Absent Urine Bacteria 1+ Abnormal Absent Urine Squamous Epithelial Cell Present Abnormal Absent Urine Culture And 01/06/2019 [facility] Urine Culture SEE RESULT [address] [place] [address] [phone] 1 SEE RESULT BELOW Name: ZARINA CLEMONS : [address]: Jorge Vila MD Acct: [id number] Unit: [id number] AGE: 54 Location: [facility] Re04/21/19 SEX: F Status: REG REF SPEC: [id number] SCOTTY: 04/21/19-[address]: Jorge Vila MD REQ: [id number] RECD: 04/22/19123 STATUS: SANDRA TRACY DR: Edith Saldivar MD [...] was evaluated with the assistance of the [employer] Test Imaging System. Due to cytologic findings at the order tracer microscope, comprehensive manual rescreening by a Campus Chaplain may be required. The Pap Smear is [...] CONTINUED ON NEXT PAGE DEPARTMENT OF PATHOLOGY, [address] [place] [address] Gene Mcknight M.D. Director [facility] # [id number] 2 *Ascorbic acid is present which may interfere with detection of blood. 3 SEE RESULT BELOW Name: ZARINA CLEMONS : [address]: Gonzalo Varela NP Acct: [id number] Unit: [id number] AGE: 53 Location: LAB Re01/06/19 SEX: F Status: REG REF SPEC: [id number] SCOTTY: 01/06/[address]: Gonzalo Varela NP REQ: [id number] RECD: 01/06/193843 STATUS: COMP _ SOURCE: URINE SPDESC: ORDERED: Urine Culture Procedure Result Reported Site Urine Culture Final 01/08/19- 0909 ML Organism 1 ESCHERICHIA COLI [place] Count 50-75,000 (Many) CFU/ML 1. ESCHERICHIA COLI [...] . END OF REPORT DEPARTMENT OF PATHOLOGY, [address] [place] [address] Gene Mcknight M.D. Director [facility] # [id number] Procedures Date Code Description Status 04/14/2019 72831 Diffusing Capacity Completed 04/14/2019 74377 Plethysmography Determination Lung Volumes & Per Completed Airway Resist 04/14/2019 35611 Pulmonary Function><Bronchodil Completed 04/30/2018 [id number] Mammogram Completed 05/06/2017 16251436 Colonoscopy Completed 03/19/2017 [id number] Mammogram Completed 02/07/2016 [id number] Mammogram Completed 01/08/2015 [id number] Mammogram Completed 01/05/2014 [id number] Mammogram Completed 07/15/2013 [id number] Diabetic Retinal Eye Exam Completed 01/04/2013 [id number] Mammogram Completed 11/25/2011 [id number] Bone Mineral Density Test Completed Medical Devices Description No Information Available Encounters Type Date Location Provider Dx Diagnosis Office Visit 04/05/2019 [facility] Gonzalo LEATHA Varela J01.90 Acute sinusitis , 10:00a Medicine - [facility] unspecified Office Visit 03/07/2019 [facility] Gonzalo Nichole, MEDICAL TECHNICIAN R06.02 Shortness of breath 10:00a Medicine - [facility] M89.8x8 Other specified disorders of bone, other site Office Visit 02/15/2019 11:20a [facility] Internal Amelia Wiggins J01.90 Acute sinusitis, Medicine - N.P. unspecified [facility] Assessments Date Code Description Provider 04/27/2019 J45.909 Unspecified asthma, uncomplicated Marisela Wolff MD 04/27/2019 J30.89 Other allergic rhinitis Marisela Wolff MD 04/27/2019 R06.83 Snoring Marisela Wolff MD 04/14/2019 R06.02 Shortness of breath Marisela Wolff MD 04/05/2019 J01.90 Acute sinusitis, unspecified Gonzaloyaniv Varela NP 03/07/2019 R06.02 Shortness of breath Gonzalo Varela NP 03/07/2019 M89.8x8 Other specified disorders of bone, other site Gonzalo Varela NP 02/15/2019 J01.90 Acute sinusitis, unspecified Amelia Wiggins N.P. Plan of Treatment Future Appointment(s):06/09/2019 2:00 pm - Marisela Wolff MD at [facility]04/27/2019 - Marisela Wolff MDJ45.909 Unspecified asthma, uncomplicatedNew Medication:Levalbuterol Tartrate 45 mcg/Act - 1 puff 2- 3 times daily as needed for sobFollow up:2 jnuzpC59.89 Other allergic mfqvpcdoW73.83 SnoringNew Orders:Home Sleep Testing, Ordered: 04/27/19 Functional Status Description No Information Available Mental Status Description No Information Available Referrals Refer to Reason for Referral Status Appt Date Marisela Wolff MD Sent 04/27/[address] [place] [phone]
[2019-06-05 16:51] VITALS: BP 125/78
--- NOTE | 2019-06-05 17:37 | UC ---
Ear Complaint HPI - HPI Summary HPI Summary: has had long hx sinus and ear problems since childhood. uses flonase nasal spray routinely. This am she had pressure in both ears and so took a sudafed and felt better over few hours. she also reports cloudy urine this am, afraind she has a UTI. it seemed to burn this am when urinating - but not since - History of Current Complaint Chief Complaint: UCGeneralIllness Stated Complaint: POSS UTI/ EAR PAINS Time Seen by Provider: 06/05/19 17:24 Hx Obtained From: Patient Hx Last Menstrual Period: hysterectomy Onset/Duration: Gradual Onset Severity Initially: Mild Severity Currently: Moderate Pain Intensity: 8 Associated Signs/Symptoms: Negative: Hearing Loss, Foreign Body Sensation, URI Symptoms Related History: Seasonal Allergies - Allergies/Home Medications Allergies/Adverse Reactions: Allergies Allergy/AdvReac Type Severity Reaction Status Date / Time doxycycline Allergy Severe Blisters Verified 06/05/19 16:52 Sulfa (Sulfonamide Allergy Severe Anaphylatic Verified 06/05/19 16:52 Antibiotics) Shock amoxicillin Allergy Intermediate Diarrhea Verified 06/05/19 16:52 erythromycin base Allergy Intermediate GI Upset Verified 06/05/19 16:52 fluoxetine Allergy Intermediate GI Upset Verified 06/05/19 16:52 progesterone Allergy Intermediate panic Verified 06/05/19 16:52 clavulanic acid Allergy Diarrhea Verified 06/05/19 16:52 STEROIDS AdvReac Severe "PUSH ME Uncoded 06/05/19 16:52 OVER THE EDGE" PMH/Surg Hx/FS Hx/Imm Hx Previously Healthy: Yes Respiratory History: Asthma Psychological History: Anxiety - Surgical History Surgical History: Yes Surgery Procedure, Year, and Place: 2004 hysterectomy- TOTAL HYSTERECTOMY, tonsillectomy & adenoidectomy, ear infections -tubes,mole removed left breast, appy 2017 - Family History Known Family History: Positive: Hypertension, Diabetes, Other - anxiety, depression, Afib, aneurysm - Social History Occupation: Unemployed Lives: With Family Alcohol Use: None Substance Use Type: None Smoking Status (MU): Never Smoked Tobacco Review of Systems All Other Systems Reviewed And Are Negative: Yes Constitutional: Positive: Negative. Negative: Fever Skin: Positive: Negative. Negative: Rash Eyes: Positive: Negative. Negative: Drainage, Eye Redness ENT: Positive: Other - ear pressure. Negative: Sore Throat Respiratory: Positive: Negative Gastrointestinal: Positive: Negative. Negative: Abdominal Pain Genitourinary: Positive: Dysuria. Negative: Vaginal/Penile Burning Neurological: Positive: Negative. Negative: Headache Psychological: Positive: Anxious - because of ear pressure Is Patient Immunocompromised?: No Physical Exam Triage Information Reviewed: Yes Appearance: Well-Appearing, No Pain Distress, Well-Nourished Vital Signs: Initial Vital Signs Temp 98.2 F 06/05/19 16:46 Pulse 70 06/05/19 16:46 Resp 16 06/05/19 16:46 BP 125/78 06/05/19 16:46 Pulse Ox 100 06/05/19 16:46 Vital Signs Reviewed: Yes Eyes: Positive: Conjunctiva Clear ENT: Positive: Pharynx normal, TMs normal - except for scarring. Negative: Sinus tenderness Neck exam: Normal Neck: Positive: Supple, Nontender, No Lymphadenopathy Respiratory Exam: Normal Respiratory: Positive: Lungs clear Abdominal Exam: Normal Abdomen Description: Positive: Nontender, No Organomegaly, Soft. Negative: CVA Tenderness (R), CVA Tenderness (L) Musculoskeletal Exam: Normal Neurological Exam: Normal Psychological Exam: Normal - a bit nervous when explaining past history Skin Exam: Normal Skin: Negative: Rashes Ear Complaint Course/Dx - Differential Dx/Diagnosis Differential Diagnosis/HQI/PQRI: Cerumen Impaction, Otitis Externa, Otitis Media , URI, Other - UTI Provider Diagnosis: Eustachian tube dysfunction, Dysuria Discharge ED - Sign-Out/Discharge Documenting (check all that apply): Patient Departure All imaging exams completed and their final reports reviewed: No Studies - Discharge Plan Condition: Good Disposition: HOME Patient Education Materials: Earache (ED), Dysuria (ED) Referrals: Edith Saldivar MD [Primary Care Provider] - 2 Days (if no improvement ) Additional Instructions: drink plenty of fluids there is no evidence of urinary tract infection on today's exam Return if burning urination recurs There is no evidence of ear infection on today's exam, your symptoms are consistent with eustachian tube dysfunction continue using your flonase nasal spray and follow-up with dr. Ruiz as planned - Billing Disposition and Condition Condition: GOOD Disposition: Home - Attestation Statements Provider Attestation: I was available for consult. This patient was seen by the [facility]. The patient was not presented to , seen by or examined by oh -Juliana Madrid MD
== END 2019-06-05 17:55 | disposition home or self-care (01) ==
LOC: UCEAST 16:39
DX: H69.93 Unspecified Eustachian tube disorder, bilateral (principal); R30.0 Dysuria; J45.909 Unspecified asthma, uncomplicated; Z88.1 Allergy status to other antibiotic agents; Z88.2 Allergy status to sulfonamides; Z88.0 Allergy status to penicillin; Z88.8 Allergy status to other drugs, medicaments and biological substances
CPT/HCPCS: 81003; 99211; G0463

== ENCOUNTER 2019-06-22 16:52 | Emergency (ER) | payer MEDICARE ==
[2019-06-22 17:42] LABS: ABS Basophils 0.1 10^3/ul (0-0.2); ABS Lymphocytes 1.1 10^3/ul (1.0-4.8); ABS Monocytes 0.4 10^3/ul (0-0.8); ABS Neutrophils 4.1 10^3/ul (1.5-7.7); Eosinophil % 0.8 %; Hematocrit 43 % (35-47); Hemoglobin 15.2 g/dL (12.0-16.0); Lymphocyte % 19.6 %; Mean Corpuscular HGB Conc 35 g/dL (31-36); Mean Corpuscular Hemoglobin 32 pg (27-31); Mean Corpuscular Volume 90 fL (80-97); Nucleated Red Blood Cells % 0.4; Platelet Count 182 10^3/uL (150-450); Red Blood Count 4.76 10^6 /uL (3.70-4.87); Red Cell Distribution Width 13 % (10-15); White Blood Count 5.8 10^3/uL (3.5-10.8)
[2019-06-22 17:50] LABS: INR 1.04 (0.82-1.09)
[2019-06-22 17:53] LABS: Albumin 4.5 g/dL (3.2-5.2); Calcium 9.7 mg/dL (8.6-10.3); Potassium 4.2 mmol/L (3.5-5.0); Total Bilirubin 0.5 mg/dL (0.2-1.0)
[2019-06-22 17:59] LABS: Albumin/Globulin Ratio 1.7 (1-3); BUN/Creatinine Ratio 12.9 (8-20); EGFR African American 76.3 (>60); EGFR Non-African American 63.1 (>60); Globulin 2.6 g/dL (2-4); Total Protein 7.1 g/dL (6.4-8.9)
--- NOTE | 2019-06-22 19:41 | ED ---
Shortness of Breath - HPI Summary HPI Summary: 54-year-old female presents with shortness breath. This has happened before but it was very severe today. She has mild asthma. She has history of asthma but states that this feels different. No pain or swelling in her calf muscles. No recent travel. no family history of blood clots. She states that she is nonsmoker. some providers told that she has asthma and other told her no. She took some Xanax and it helped improve her symptoms. - History of Current Complaint Chief Complaint: EDChestPainROMI Time Seen by Provider: 06/22/19 19:27 - Allergy/Home Medications Allergies/Adverse Reactions: Allergies Allergy/AdvReac Type Severity Reaction Status Date / Time doxycycline Allergy Severe Blisters Verified 06/22/19 19:39 Sulfa (Sulfonamide Allergy Severe Anaphylatic Verified 06/22/19 19:39 Antibiotics) Shock amoxicillin Allergy Intermediate Diarrhea Verified 06/22/19 19:39 erythromycin base Allergy Intermediate GI Upset Verified 06/22/19 19:39 fluoxetine Allergy Intermediate GI Upset Verified 06/22/19 19:39 progesterone Allergy Intermediate panic Verified 06/22/19 19:39 clavulanic acid Allergy Diarrhea Verified 06/22/19 19:39 STEROIDS AdvReac Severe "PUSH ME Uncoded 06/05/19 16:52 OVER THE EDGE" PMH/Surg Hx/FS Hx/Imm Hx Endocrine/Hematology History: Denies: Hx Diabetes, Hx Thyroid Disease Cardiovascular History: Denies: Hx Hypertension, Hx Pacemaker/ICD Respiratory History: Reports: Hx Asthma - ALLERGY RELATED? Denies: Hx Chronic Obstructive Pulmonary Disease (COPD) GI History: Denies: Hx Ulcer History: Denies: Hx Dialysis, Hx Renal Disease Musculoskeletal History: Reports: Hx Fibromyalgia - better since replacing Vit D Sensory History: Reports: Hx Contacts or Glasses Denies: Hx Hearing Aid Opthamlomology History: Reports: Hx Contacts or Glasses Neurological History: Reports: Other Neuro Impairments/Disorders - vertigo Psychiatric History: Reports: Hx Anxiety, Hx Depression, Hx Panic Disorder, Hx Inpatient Treatment, Hx Community Mental Health Tx Denies: Hx Eating Disorder - Cancer History Hx Chemotherapy: No Hx Radiation Therapy: No - Surgical History Surgery Procedure, Year, and Place: 2004 hysterectomy- TOTAL HYSTERECTOMY, tonsillectomy & adenoidectomy, ear infections -tubes,mole removed left breast, appy 2017 Hx Anesthesia Reactions: No Infectious Disease History: No Infectious Disease History: Reports: Hx Shingles Denies: Hx Hepatitis, Hx Human Immunodeficiency Virus (HIV), History Other Infectious Disease, Traveled Outside the [place] in Last 30 Days - Family History Known Family History: Positive: Hypertension, Diabetes, Other - anxiety, depression, Afib, aneurysm - Social History Alcohol Use: None Hx Substance Use: No Substance Use Type: Reports: None Hx Tobacco Use: No Smoking Status (MU): Never Smoked Tobacco Review of Systems Negative: Fever Negative: Chest Pain Positive: Shortness Of Breath. Negative: Cough Positive: Anxious All Other Systems Reviewed And Are Negative: Yes Physical Exam Triage Information Reviewed: Yes Vital Signs On Initial Exam: Initial Vitals Temp Pulse Resp BP Pulse Ox 97.9 F 77 16 118/75 100 06/22/19 16:57 06/22/19 16:57 06/22/19 16:57 06/22/19 16:57 06/22/19 16:57 Vital Signs Reviewed: Yes Appearance: Positive: Well-Appearing Skin: Positive: Warm, Dry Head/Face: Positive: Normal Head/Face Inspection Eyes: Positive: Normal, EOMI, AIDA, Conjunctiva Clear ENT: Positive: Pharynx normal Respiratory/Lung Sounds: Positive: Clear to Auscultation, Breath Sounds Present Cardiovascular: Positive: Normal, RRR Abdomen Description: Positive: Nontender, Soft Bowel Sounds: Positive: Present Musculoskeletal: Positive: Normal Neurological: Positive: Normal Psychiatric: Positive: Normal Procedures - Sedation Patient Received Moderate/Deep Sedation with Procedure: No Diagnostics - Vital Signs Vital Signs Temp Pulse Resp BP Pulse Ox 06/22/19 18:07 98.7 F 79 16 126/73 100 06/22/19 16:57 97.9 F 77 16 118/75 100 - Laboratory Lab Results: Lab Results 06/22/19 06/22/19 06/22/19 Range/Units 17:27 17:27 17:27 WBC 5.8 (3.5-10.8) 10^3/uL RBC 4.76 (3.70-4.87) 10^6 /uL Hgb 15.2 (12.0-16.0) g/dL Hct 43 (35-47) % MCV 90 (80-97) fL MCH 32 H (27-31) pg MCHC 35 (31-36) g/dL RDW 13 (10-15) % Plt Count 182 (150-450) 10^3/uL MPV 8.0 (7.4-10.4) fL Neut % (Auto) 71.7 % Lymph % (Auto) 19.6 % Rich % (Auto) 6.7 % Eos % (Auto) 0.8 % Baso % (Auto) 1.2 % Absolute Neuts (auto) 4.1 (1.5-7.7) 10^3/ul Absolute Lymphs (auto) 1.1 (1.0-4.8) 10^3/ul Absolute Monos (auto) 0.4 (0-0.8) 10^3/ul Absolute Eos (auto) 0.0 (0-0.6) 10^3/ul Absolute Basos (auto) 0.1 (0-0.2) 10^3/ul Absolute Nucleated RBC 0.0 10^3/ul Nucleated RBC % 0.4 INR (Anticoag Therapy) 1.04 (0.82-1.09) Sodium 139 (135-145) mmol/L Potassium 4.2 (3.5-5.0) mmol/L Chloride 103 (101-111) mmol/L Carbon Dioxide 31 (22-32) mmol/L Anion Gap 5 (2-11) mmol/L BUN 12 (6-24) mg/dL Creatinine 0.93 (0.51-0.95) mg/dL Est GFR ( Amer) 76.3 (>60) Est GFR (Non-Af Amer) 63.1 (>60) BUN/Creatinine Ratio 12.9 (8-20) Glucose 90 (70-100) mg/dL Calcium 9.7 (8.6-10.3) mg/dL Total Bilirubin 0.50 (0.2-1.0) mg/dL AST 19 (13-39) U/L ALT 14 (7-52) U/L Alkaline Phosphatase 72 (34-104) U/L Troponin I 0.00 (<0.03) ng/mL Total Protein 7.1 (6.4-8.9) g/dL Albumin 4.5 (3.2-5.2) g/dL Globulin 2.6 (2-4) g/dL Albumin/Globulin Ratio 1.7 (1-3) Result Diagrams: 06/22/19 17:27 06/22/19 17:27 Lab Statement: Any lab studies that have been ordered have been reviewed, and results considered in the medical decision making process. Course/Dx - Course Course Of Treatment: 54-year-old female presents with shortness breath. This has happened before but it was very severe today. She has mild asthma. She has history of asthma but states that this feels different. No pain or swelling in her calf muscles. No recent travel. no family history of blood clots. She states that she is nonsmoker. some providers told that she has asthma and other told her no. She took some Xanax and it helped improve her symptoms. On exam lungs clear to auscultation. Patient is very anxious. well criteria low risk do not suspect PE. Discuss at this time that would not getting breathing treatments as lungs are clear. Discuss a follow-up with an metal burnisher states she did not complete her asthma testing. Discussed that likely the need to change in medications for anxiety. told follow up with psychiatrist. Patient understands agrees the plan. - Diagnoses Differential Diagnosis/HQI/PQRI: Positive: Asthma, Pulmonary Embolism, Other - anxiety Provider Diagnoses: Shortness of breath Discharge ED - Sign-Out/Discharge Documenting (check all that apply): Patient Departure - Discharge Plan Condition: Good Disposition: HOME Patient Education Materials: Anxiety (ED) Referrals: Gonzalo Varela NP [Primary Care Provider] - Additional Instructions: follow up with psychiatry about changing anxiety medication You could complete the methacholine test have your pfts checked in the summer Return to ED if develop any new or worsening symptoms - Billing Disposition and Condition Condition: GOOD Disposition: Home
[2019-06-22 20:23] VITALS: BP 124/91
== END 2019-06-22 20:15 | disposition home or self-care (01) ==
LOC: ED 16:52
DX: R06.02 Shortness of breath (principal); F41.9 Anxiety disorder, unspecified; F32.9 Major depressive disorder, single episode, unspecified; Z90.710 Acquired absence of both cervix and uterus; Z88.1 Allergy status to other antibiotic agents; Z88.0 Allergy status to penicillin; Z88.2 Allergy status to sulfonamides; Z88.8 Allergy status to other drugs, medicaments and biological substances
CPT/HCPCS: 36415; 80053; 84484; 85025; 85610; 93005; 99282